=== PATIENT | male | born 1970 | race Caucasian/White ===

== ENCOUNTER 2021-02-10 17:31 | Emergency (ER) | payer OTHER, SELFPAY ==
[2021-02-10 17:32] VITALS: BP 270/231; PULSE 109; RESP 16; TEMP 36.3; O2SAT 100; BMI 26.6
[2021-02-10 17:42] VITALS: BP 121/74
--- NOTE | 2021-02-10 17:56 | EDS_ITS ---
HPI HPI - GI History of Present Illness Chief Complaint: Nausea/Vomiting Narrative Narrative: 50-year-old male presenting with nausea/vomiting. His last episode of vomiting was yesterday. He states he has the chills. Patient states he is not had a cough, runny nose, fever, change in taste or smell. He also states that he did drink a lot yesterday and this may be why he vomited. He does admit to drinking every day about 4-5 beers. He has no history of pancreatitis. He denies abdominal pain. He is concerned he has COVID-19 and wants to be tested. [facility] Medical History Anxiety Depression Home Medications amitriptyline 1 tab OTHER QHS 02/10/21 [History Last Taken Unknown] ondansetron 4 mg PO Q8H PRN PRN #10 tab 02/10/21 [Rx Last Taken Unknown] Allergy/AdvReac Type Severity Reaction Status Date / Time Penicillins [PCN] Allergy PT UNSURE Verified 02/10/21 17:33 OF REACTION Social History Smoking Status: Unknown if ever smoked ROS ROS ED Constitutional Constitutional ED: Reports chills; Denies fever(s) or sweats ENT ENT ED: Denies rhinorrhea or sore throat Cardiovascular Cardiovascular: Denies chest pain or palpitations Respiratory/Chest Respiratory/Chest: Denies cough or dyspnea Gastrointestinal Gastrointestinal: Reports nausea and vomiting; Denies abdominal pain, constipation or diarrhea Genitourinary Genitourinary ED: Denies dysuria or hematuria Musculoskeletal Musculoskeletal: Denies arthralgias, back pain, myalgias or neck pain Integumentary Denies Abrasions or rash Neurologic Neurologic: Denies headache(s) or paresthesias EXAM Physical Exam Const Vital Signs: 02/10/21 17:32 02/10/21 17:42 Temperature 97.4 F L Temperature Source Temporal Pulse Rate 109 H Respiratory Rate 16 Blood Pressure 270/231 H 121/74 H Blood Pressure Mean 270/231 89 Pulse Ox 100 Positive well nourished General Appearance ED: NAD; Negative for pallor HEENT Reports moist mucous membranes normocephalic and atraumatic Eyes PERRL and EOMs intact bilaterally Resp normal respiratory effort and clear to auscultation bilaterally Cardio regular rate and regular rhythm GI non-tender and non-distended Palpation: soft Neuro Sensorium / Orientation: alert, oriented to person, oriented to place and oriented to time Psych mental status grossly normal and thought process normal Skin General Skin Exam: Negative for jaundice or pallor Rashes: no rashes MDM MDM MDM Narrative Medical decision making narrative: Patient presented with nausea/vomiting. He states his last episode was yesterday. He states he is an everyday drinker but is more concerned for COVID-19. I did offer blood work and possibly imaging if necessary but he declines. He states he just wants to be tested and he will wait for his result at home. He was given Zofran in the ED and will be given a prescription for this. He is counseled to discontinue drinking on an everyday basis. He is given return precautions. Patient stable discharge at this time. Impression: 1 viral syndrome Discharge Plan Triage Chief Complaint: Nausea/Vomiting ED Provider: Mk Pak Dx/Rx/DC Orders Instructions: ED Viral Syndrome (Adult) Prescriptions: New ondansetron 4 mg tablet,disintegrating 4 mg PO Q8H PRN PRN (Reason: Nausea) Qty: 10 RF: 0 No Action amitriptyline 1 tab OTHER QHS RF: 0 [facility] - Disposition Disposition: Home, Self Care
[2021-02-10] MEDS: Ondansetron ODT 4 MG Tablet PO (18:09)
== END 2021-02-10 18:26 | disposition home or self-care (01) ==
LOC: ED 18:15
PROVIDERS: Emergency Provider Student in an Organized Health Care Education/Training Program
DX: B34.9 Viral infection, unspecified (principal); F32.9 Major depressive disorder, single episode, unspecified; Z79.899 Other long term (current) drug therapy
CPT/HCPCS: 87426; 99283

== ENCOUNTER 2022-07-22 20:55 | Emergency (ER) | payer OTHER, SELFPAY ==
[2022-07-22 20:57] VITALS: BP 172/98; PULSE 71; RESP 15; TEMP 37.1; O2SAT 100; BMI 27.6
--- NOTE | 2022-07-22 21:14 | EDS_ITS ---
HPI History of Present Illness Chief Complaint: Upper Extremity Injury Detail of Chief Complaint: Right hand and wrist pain Informant: patient Narrative Narrative: Patient presents to the emergency department with complaint of pain and swelling to the right hand and wrist. 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 Patient states that this evening he noticed a lot of swelling and discoloration to his hand and decreased ability to flex and extend his fingers and became concerned. Patient is right-hand dominant. He denies d irect trauma to the hand or wrist. PFSH PFS Medical History Anxiety Depression Home Medications amitriptyline 1 tab OTHER QHS 02/10/21 [History Last Taken Unknown] ondansetron 4 mg disintegrating tablet 4 mg PO Q8H PRN PRN Nausea #10 tabs 02/10/21 [Rx Last Taken Unknown] naproxen 500 mg tablet 500 mg PO BID #14 tabs 07/22/22 [Rx Last Taken Unknown] Allergy/AdvReac Type Severity Reaction Status Date / Time Penicillins [PCN] Allergy PT UNSURE Verified 07/22/22 21:02 OF REACTION Social History Smoking Status: Unknown if ever smoked ROS ROS ED Review of Systems ROS Unobtainable: other Constitutional Constitutional ED: Reports lethargy; Denies chills, fever(s), sweats or weight loss Eyes Eyes: Denies blurry vision, change in vision or diplopia ENT ENT ED: Denies rhinorrhea or sore throat Cardiovascular Cardiovascular: Denies chest pain, orthopnea or racing heartbeat Respiratory/Chest Respiratory/Chest: Denies cough, dyspnea, dyspnea on exertion, orthopnea or sputum Gastrointestinal Gastrointestinal: Denies abdominal pain, diarrhea, nausea or vomiting Genitourinary Genitourinary ED: Denies dysuria, hematuria or urinary frequency Musculoskeletal Musculoskeletal: Reports other Details: Right wrist and hand pain. ; Denies arthralgias, back pain, myalgias or neck pain Integumentary Denies abscess, Abrasions or rash Neurologic Neurologic: Denies headache(s) or weakness Psychiatric Psychiatric: Denies anxiety, depression or suicidal thoughts Endocrine Endocrinology: Denies polydipsia, polyphagia or polyuria Hematologic/Lymphatic Hematologic/Lymphatic: Denies easy bleeding, easy bruising or lymphadenopathy Allergic/Immunologic Allergic/Immunologic ED: Denies mouth swelling, tongue swelling or urticaria EXAM Physical Exam Const Vital Signs: 07/22/22 20:57 Temperature 98.7 F Temperature Source Temporal Pulse Rate 71 Respiratory Rate 15 Blood Pressure 172/98 H Blood Pressure Mean 122 Pulse Ox 100 Oxygen Delivery Method Room Air Positive well nourished and well developed General Appearance ED: well developed and NAD HEENT Reports TM's clear and moist mucous membranes normocephalic and atraumatic; Negative for trauma or tenderness Tympanic Membrane ED: Yes TM's clear Eyes PERRL and EOMs intact bilaterally General Eye ED: Negative for pale conjunctiva or scleral icterus Neck no lymphadenopathy, supple and no JVD General: Negative for tenderness Chest Wall inspection of chest normal and palpation of chest normal Chest: Negative for tenderness Resp normal respiratory effort and clear to auscultation bilaterally Effort and Inspection: Negative for respiratory distress or pain with movement Auscultation: Negative for rhonchi, wheezes or diminished lung sounds Cardio regular rate, regular rhythm, S1 normal heart sound, S2 normal heart sound and no murmurs Peripheral Pulses: pulses 2+ throughout GI normal to inspection, nondistended, normoactive bowel sounds, soft to palpation, non-tender, non-distended and no masses Back/Spine no CVA tenderness and no thoracic nor lumbar tenderness Extremity Extremity Narrative: Right wrist-patient has have some mild diffuse swelling to the wrist and dorsum of the right hand. Patient has some faint reddish discoloration to the right hand as well as the left hand. Patient has normal ulnar and radial pulses as well as normal cap refill. Somewhat limited range of motion flexion extension of the digits of the right hand but tells me this is actually been improving steadily. General Extremety ED: Negative for edema General Extremity: Negative for edema Neuro oriented x3, CN's II-XII intact bilaterally, no sensory deficits noted and gait normal Sensorium / Orientation: awake, alert, oriented to person, oriented to place and oriented to time Motor Exam: strength 5/5 throughout and strength abnormal Psych mental status grossly normal Skin no rashes or lesions noted and no wounds MDM MDM MDM Narrative Medical decision making narrative: Patient presents with right hand and wrist pain. Clinically I feel he has a overuse injury/sprain/strain of the wrist and hand. I do not feel any x-rays or imaging is indicated. Patient is neurovascularly intact. Will be given a wrist splint and work restrictions. He will be given a prescription for naproxen. Patient to follow-up with [facility] and 3 to 5 days. Patient given work restrictions no use right hand. Discharge Plan Triage Chief Complaint: Upper Extremity Injury ED Provider: Anders Sage Dx/Rx/DC Orders Clinical Impression: Right wrist sprain, Sprain of hand, right Instructions: ED Hand Sprain, ED Wrist Sprain Prescriptions: New naproxen 500 mg tablet 500 mg PO BID Qty: 14 0RF No Action amitriptyline 1 tab OTHER QHS ondansetron 4 mg tablet,disintegrating 4 mg PO Q8H PRN PRN (Reason: Nausea) Qty: 10 0RF [facility]errals[facility]Group [facility] Phys[facility] - [facility]-5 Days [facility] - Disposition Disposition: Home, Self Care
== END 2022-07-22 21:55 | disposition home or self-care (01) ==
LOC: ED 21:40
PROVIDERS: Emergency Provider Emergency Medicine; Visit Provider Emergency Medicine
DX: S63.91XA Sprain of unspecified part of right wrist and hand, initial encounter (principal); X58.XXXA Exposure to other specified factors, initial encounter
CPT/HCPCS: 99283

== ENCOUNTER 2022-09-02 19:43 | Emergency (ER) | payer OTHER, SELFPAY ==
[2022-09-02 19:47] VITALS: BP 168/92; PULSE 81; RESP 18; TEMP 36.8; O2SAT 100; BMI 27.6
[2022-09-02 21:36] VITALS: RESP 18
--- NOTE | 2022-09-02 22:27 | EDS_ITS ---
HPI History of Present Illness Chief Complaint: Mental Health Narrative Narrative: Patient is a 51-year-old male with past medical history of anxiety and depression. 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 He states that unfortunately she recently. He states he has been feeling down and depressed secondary to this. He states that today he was having a rough spot and called the hotline. He states that they recommended he come to the hospital for evaluation. Upon arrival to the ER the patient admits to feeling depressed because of the recent loss of his relationship but denies any attempt to hurt himself or any suicidal homicidal ideation. PFSH PFSH Medical History (Updated 09/02/22 @ 22:[address] Aguilar Gary DO) Anxiety Depression Home Medications amitriptyline 1 tab OTHER QHS 02/10/21 [History Last Taken Unknown] ondansetron 4 mg disintegrating tablet 4 mg PO Q8H PRN PRN Nausea #10 tabs 02/10/21 [Rx Last Taken Unknown] naproxen 500 mg tablet 500 mg PO BID #14 tabs 07/22/22 [Rx Last Taken Unknown] Allergy/AdvReac Type Severity Reaction Status Date / Time Penicillins [PCN] Allergy PT UNSURE Verified 09/02/22 19:47 OF REACTION Surgical History (Updated 09/02/22 @ 21:38 by Noemy Dawkins) History of carpal tunnel surgery Social History Smoking Status: Never smoker ROS [facility] ED Constitutional Constitutional ED: Denies chills or fever(s) ENT ENT ED: Denies sore throat Cardiovascular Cardiovascular: Denies chest pain Respiratory/Chest Respiratory/Chest: Denies cough or dyspnea Gastrointestinal Gastrointestinal: Denies abdominal pain, diarrhea, nausea or vomiting Genitourinary Genitourinary ED: Denies dysuria Musculoskeletal Musculoskeletal: Denies myalgias Integumentary Denies rash Neurologic Neurologic: Denies headache(s) Psychiatric Psychiatric: Reports depression; Denies suicidal ideation or suicidal thoughts Hematologic/Lymphatic Hematologic/Lymphatic: Denies easy bleeding or easy bruising EXAM Physical Exam Const Vital Signs: 09/02/22 19:47 09/02/22 21:36 Temperature 98.3 F Temperature Source Temporal Pulse Rate 81 Respiratory Rate 18 18 Blood Pressure 168/92 H Blood Pressure Mean 117 Pulse Ox 100 Oxygen Delivery Method Room Air Positive well nourished and well developed General Appearance ED: well developed Eyes PERRL and EOMs intact bilaterally Neck supple Resp normal respiratory effort and clear to auscultation bilaterally Cardio regular rate and regular rhythm Extremity normal to inspection Neuro oriented x3 and CN's II-XII intact bilaterally Sensorium / Orientation: alert Psych Psych Narrative: Patient has a depressed affect without homicidal or suicidal ideation Skin no rashes or lesions noted MDM MDM MDM Narrative Medical decision making narrative: Patient presented to the ER hypertensive otherwise with stable vital. 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 He states he was having a weak moment earlier today when he called the hotline but is adamant he does not have any type of homicidal or suicidal ideation. He also denies any alcohol or illicit drugs on board or any attempt to hurt himself this evening. Overall he is low risk for suicide attempt as he has never tried to hurt himself in the past has never been admitted to psychiatric hospital and he has no thoughts of it at this time. The patient is undergoing a grief reaction which is very normal based on the recent loss of his relationship and caregiver capacity. He was informed that he needs to seek out treatment through counseling or a therapist but at this time as he is not actively homicidal or suicidal and is low risk to attempt he is otherwise safe for discharge. History & Record Review Discussion w/independent historian: Patient Discharge Plan Triage Chief Complaint: Mental Health ED Provider: Aguilar Gary Dx/Rx/DC Orders Clinical Impression: Depression, Grief reaction Instructions: Depression: Tips to Help Yourself, Grief and Loss Coping Prescriptions: No Action amitriptyline 1 tab OTHER QHS ondansetron 4 mg tablet,disintegrating 4 mg PO Q8H PRN PRN (Reason: Nausea) Qty: 10 0RF naproxen 500 mg tablet 500 mg PO BID Qty: 14 0RF [facility] - Disposition Disposition: Home, Self Care
--- NOTE | 2022-09-02 22:32 | CM.ED ---
Addendum entered by Chaparrita Hernandez 09/02/22 22:35: Patient was evaluated by MD and further MH evaluation not needed. SW updated [facility] patient is being discharged with resources for depression and grief. RAHUL Mcginnis Original Note: Social Work Note SW contacted [facility] to review patient's needs for evaluation. Raciel reports Yareli will be in after midnight and can assess patient when medically cleared. Plan: [facility] to evaluate once medically cleared RAHUL Mcginnis
== END 2022-09-02 23:11 | disposition home or self-care (01) ==
LOC: ED 22:33
PROVIDERS: Emergency Provider Emergency Medicine; Visit Provider Emergency Medicine
DX: F32.A Depression, unspecified (principal)
CPT/HCPCS: 99282

== ENCOUNTER 2022-09-07 23:26 | Observation (INO) | payer OTHER, SELFPAY ==
[2022-09-07 23:27] VITALS: BP 171/87; PULSE 98; RESP 15; TEMP 36.2; O2SAT 99; BMI 27.2
[2022-09-07] MEDS: 0.9% Normal Saline 1,000 ML 1000 ML IV (23:57)
[2022-09-07] MEDS: Ondansetron 4 MG/2 ML Vial IV (23:57)
[2022-09-08] VITALS (8 sets, daily range): BP systolic 140–165; BP diastolic 73–92; PULSE 76–91; RESP 16–18; TEMP 36.2–37; O2SAT 97–100; BMI 25.7
--- NOTE | 2022-09-08 00:01 | EX.ED.VIS.PS ---
HPI HPI - Psych History of Present Illness Chief Complaint: Mental Health Informant: patient Narrative Narrative: Brought in by EMS for evaluation from home. History anxiety depression on amitriptyline at night to sleep provided by [facility]. He does not follow a counselor or psychiatrist. Reports lost his significant other of 20 years a month ago due to illness. They have no children together however he does have a son in his 20s. He also help raise 2 of his significant other's children when they are 5 and 8. He is feeling more depressed and grieving. Started talking to be a counselor 5 days ago he was sent to the ED at that time here. He is valued by ED physician throughout [facility] and it was a grieving process, he had no suicidal or homicidal ideations. He was discharged home with follow-up with [facility]. He states he has been talking with them almost daily since then. Today had another discussion and he states he requested somebody check on him. Police was contacted came and evaluated. He was brought here for evaluation. Currently denies any suicidal homicidal ideations. No history of self harming. No psychiatric admissions in the past. He does admit to daily alcohol use 6-8 beers. Today he states he drank a lot more today only 1-1/2 beers. Denies any morning withdrawal symptoms. He states he has been working throughout the years, more recently through [employer] agencies. He has not worked since the loss of his significant other however states supposed to start third shift here with [employer]. Denies recreational drug use. Does report today has been thrown up more multiple times no hematemesis no diarrhea has some mid abdominal pain due to vomiting. Denies any history of pancreatitis. States nauseated unable to keep things down today. Prior similar symptoms: Yes PFSH PFSH Medical History Anxiety Depression Home Medications amitriptyline 1 tab OTHER QHS 02/10/21 [History Last Taken Unknown] Allergy/AdvReac Type Severity Reaction Status Date / Time Penicillins [PCN] Allergy PT UNSURE Verified 09/02/22 19:47 OF REACTION Surgical History History of carpal tunnel surgery Social History Smoking Status: Never smoker ROS ROS ED Constitutional Constitutional ED: Denies chills, fever(s) or sweats Eyes Eyes: Denies change in vision ENT ENT ED: Denies dysphagia or sore throat Cardiovascular Cardiovascular: Denies chest pain, leg edema, palpitations or racing heartbeat Respiratory/Chest Respiratory/Chest: Denies cough, dyspnea or dyspnea on exertion Gastrointestinal Gastrointestinal: Reports abdominal pain, nausea and vomiting; Denies diarrhea Genitourinary Genitourinary ED: Denies dysuria, hematuria or urinary frequency Musculoskeletal Musculoskeletal: Denies back pain, extremity pain or neck pain Integumentary Denies rash or wounds Neurologic Neurologic: Denies headache(s), paresthesias or weakness EXAM Physical Exam Const Vital Signs: 09/07/22 23:27 09/08/22 00:51 Temperature 97.1 F L Temperature Source Oral Pulse Rate 98 89 Respiratory Rate 15 16 Blood Pressure 171/87 H 151/84 H Blood Pressure Mean 115 106 Pulse Ox 99 97 Oxygen Delivery Method Room Air Room Air Positive well nourished and well developed General Appearance ED: well developed and NAD HEENT HEENT Narrative: Dry mucosal membranes normocephalic and atraumatic Eyes PERRL, EOMs intact bilaterally and conjunctivae normal General Eye ED: Yes normal appearance of both eyes Neck no lymphadenopathy and supple General: Negative for tenderness Chest Wall Chest: Negative for tenderness Resp normal respiratory effort and normal air movement Effort and Inspection: symmetric chest movement; Negative for respiratory distress Cardio regular rate, regular rhythm and no murmurs Peripheral Pulses: pulses 2+ throughout GI normal to inspection, nondistended, normoactive bowel sounds GI Narrative: Mild mid abdominal tenderness, no guarding or rebound negative Chahal's McBurney's tenderness. Palpation: Negative for guarding or rebound tenderness present Back/Spine no CVA tenderness and no thoracic nor lumbar tenderness Extremity normal to inspection General Extremety ED: Negative for edema or tenderness General Extremity: Negative for edema Neuro oriented x3 and no sensory deficits noted Sensorium / Orientation: awake and alert Skin no rashes or lesions noted and no wounds MDM MDM MDM Narrative Medical decision making narrative: Interventions / MDM: Differential diagnosis: Severe depression, nausea vomiting, pancreatitis, dehydration, electrolyte abnormalities Diagnosis considered but do not suspect: N/A My EKG interpretation: N/A Imaging independently reviewed and interpreted by myself: N/A External documents reviewed: N/A Test considered but not ordered:N/A ED course: Vital stable dry mucosal membranes. Presenting with grieving and depression symptoms. Denies homicidal suicidal ideations. He was seen here 5 days ago with no counselor evaluation. He has been on the phone with the [facility] counseling almost daily. He drinks alcohol daily without any withdrawal symptoms. He is in agreements to evaluation by crisis. Reports keeping things inside and not speaking with his child's ago other children or his father due to not wanting to bother them. From medical standpoint during discussion had vomiting throughout the day and dry mucosal membranes. He will be given IV fluids we will check abdominal labs rule out pancreatitis we will treat with Zofran. 0030: Labs alcohol 59. Slight elevated liver enzymes likely alcohol hepatitis. Normal lipase at 11. However he has a sodium of 123. He has been clinically vomiting throughout the day. I checked [facility] to evaluate for any old labs which was not showing any previous electrolytes. [facility] He is told me 5 years ago was told his sodium was dangerously low. He was not symptomatic at that time. He was not hospitalized he was never put on any salt tablets. This could all be secondary to his longstanding alcohol history, however today has been vomiting throughout the day now symptomatic with a low sodium. Currently unable to medically clear him with one note sodium level for psychiatry. Discussed this with the patient, he understands and agrees to stay in the hospital to help with symptoms and evaluate his sodium. Per his alcohol history he denies any withdrawal symptoms, no cravings in the mornings. No seizure history. He reports he went through voluntary alcohol program and was sober for a year. I will speak with hospitalist service for evaluation. 0110: Spoke with Dr. Boston who evaluated the ED, will admit for observations. Re-evaluation: stable Disposition discussed with patient/family/significant other: Patient Case discussed with consulting clinician: N/A Lab Data Attestation: I reviewed the patient's lab results. Labs: Laboratory Results - last 24 hr 09/07/22 09/07/22 09/07/22 23:49 23:49 23:49 WBC 3.4 L RBC 4.42 L Hgb 14.9 Hct 40.2 MCV 91.0 MCH 33.7 H MCHC 37.1 H RDW Std Deviation 40.4 RDW Coeff of Gale 12.3 Plt Count 202 MPV 8.7 Immature Gran % (Auto) 0.600 Neut % (Auto) 77.3 H Lymph % (Auto) 11.8 L [place] % (Auto) 9.1 Eos % (Auto) 0.3 Baso % (Auto) 0.9 Absolute Neuts (auto) 2.6 Absolute Lymphs (auto) 0.40 L Nucleated RBC % 0 Differential Comment SCANNED Diff Path Review May foll Sodium 123 L Potassium 3.9 Chloride 85 L Carbon Dioxide 23.0 Anion Gap 15 BUN 8 Creatinine 1.08 Estim Creat Clear Calc 75.65 Est GFR (MDRD) Af Amer 92 Est GFR (MDRD) Non-Af 76 BUN/Creatinine Ratio 7.4 L Glucose 76 Calcium 9.5 Total Bilirubin 0.60 AST 148 H ALT 113 H Alkaline Phosphatase 93 Total Protein 9.3 H Albumin 4.4 Globulin 4.9 H Albumin/Globulin Ratio 0.9 Lipase 11 L Urine Opiates Screen Urine Methadone Screen Ur Barbiturates Screen Ur Phencyclidine Scrn Ur Amphetamines Screen MDMA (Ecstasy) Screen U Benzodiazepines Scrn Urine Cocaine Screen U Cannabinoids Screen Ur Drug Screen Comment Ethyl Alcohol 59.0 09/08/22 00:04 WBC RBC Hgb Hct MCV MCH MCHC RDW Std Deviation RDW Coeff of Gale Plt Count MPV Immature Gran % (Auto) Neut % (Auto) Lymph % (Auto) [place] % (Auto) Eos % (Auto) Baso % (Auto) Absolute Neuts (auto) Absolute Lymphs (auto) Nucleated RBC % Differential Comment Diff Path Review Sodium Potassium Chloride Carbon Dioxide Anion Gap BUN Creatinine Estim Creat Clear Calc Est GFR (MDRD) Af Amer Est GFR (MDRD) Non-Af BUN/Creatinine Ratio Glucose Calcium Total Bilirubin AST ALT Alkaline Phosphatase Total Protein Albumin Globulin Albumin/Globulin Ratio Lipase Urine Opiates Screen NEGATIVE Urine Methadone Screen NEGATIVE Ur Barbiturates Screen NEGATIVE Ur Phencyclidine Scrn NEGATIVE Ur Amphetamines Screen NEGATIVE MDMA (Ecstasy) Screen NEGATIVE U Benzodiazepines Scrn NEGATIVE Urine Cocaine Screen NEGATIVE U Cannabinoids Screen NEGATIVE Ur Drug Screen Comment Ethyl Alcohol Discharge Plan Triage Chief Complaint: Mental Health ED Provider: Ramesh Obrien Dx/Rx/DC Orders Clinical Impression: Hyponatremia, Depression, Grief reaction, Nausea & vomiting, Dehydration, Acute alcoholic hepatitis, Alcoholic dependence syndrome Prescriptions: No Action amitriptyline 1 tab OTHER QHS [facility] - Disposition Disposition: Acute Care Hospital [facility]
[2022-09-08 00:05] LABS: Absolute Neutrophil Count 2.6 X10^3/uL (2.0-7.7); Basophil# 0.03 X10^3/uL; Basophil% 0.9 % (0-1); Eosinophil# 0.01 X10^3/uL; Eosinophils% 0.3 % (0-5); Hematocrit 40.2 % (40-54); Hemoglobin 14.9 g/dL (13.0-16.5); Lymphocyte % 11.8 % (19-41); Mean Corp Hgb Conc 37.1 g/dL (32-36); Mean Corpuscular Hgb 33.7 pg (27.0-32.0); Mean Platelet Vol. 8.7 fl (6.2-12.0); Monocyte# 0.31 X10^3/uL; Monocyte% 9.1 % (0-10); NRBC Flagged by Analyzer 0 % (0-5); Neutrophil # 2.63 X10^3/uL (2.7-7.7); Neutrophil % 77.3 % (47-70); POSITIVE DIFFERENTIAL YES; Platelet Count 202 K/mm3 (150-450); RBC Distribution Width CV 12.3 % (11.6-14.6); RBC Distribution Width SD 40.4 fl (35.1-43.9); Red Blood Count 4.42 M/mm3 (4.6-6.2); White Blood Count 3.4 K/mm3 (4.4-11.0)
[2022-09-08 00:14] LABS: Differential Indicated SCAN CRITERIA MET
[2022-09-08 00:18] LABS: ALB/GLOB Ratio 0.9 RATIO (0.9-2.4); AST(SGOT) 148 U/L (15-37); Alanine Aminotransfer ALT/SGPT 113 U/L (16-61); Albumin, Serum 4.4 g/dL (3.2-5.0); Alkaline Phosphatase 93 U/L (45-117); Anion Gap 15 (5-15); BUN 8 mg/dL (7-18); BUN/Creat Ratio 7.4 RATIO (10-20); Calcium,Total 9.5 mg/dL (8.5-10.1); Chloride 85 mmol/L (98-107); Creatinine, Serum 1.08 mg/dL (0.70-1.30); EST Glomerular Filtration Rate 76 mL/min (>60); Est Glom Filt Rate - Afr Amer 92 mL/min (>60); Estimated Creatinine Clearance 75.65 ml/min; Globulin 4.9 g/dL (2.2-4.2); Glucose 76 mg/dL (74-106); Lipase 11 U/L (13-75); Potassium 3.9 mmol/L (3.5-5.1); Protein, Total 9.3 g/dL (6.4-8.2); Sodium Level 123 mmol/L (136-145)
[2022-09-08 00:21] LABS: Amphetamine Urine VISTA NEGATIVE (<1000 ng/mL); Barbiturate Urine VISTA NEGATIVE (< 200 ng/mL); Benzodiazepine Urine VISTA NEGATIVE (< 200 ng/mL); Cocaine Urine VISTA NEGATIVE (< 300 ng/mL); Ecstacy Urine VISTA NEGATIVE (< 500 ng/mL); Methadone Urine VISTA NEGATIVE (< 300 ng/mL); PCP Urine VISTA NEGATIVE (< 25 ng/mL); THC Urine VISTA NEGATIVE (< 50 ng/mL); Vista UDS pH Range 4
[2022-09-08 00:42] LABS: Differential Comment SCANNED
--- NOTE | 2022-09-08 01:43 | PCM.HP.STD ---
HPI - General General Date of Admission: 09/08/22 Date of Service: 09/08/22 Chief Complaint: Intractable nausea/emesis. HPI Narrative The patient is a 51 y/o M w/ PMHx: EtOH abuse (6-8 beers daily), Anxiety and Depression with worsening depressive symptoms with recent [facility] who presents to the [facility] on 09/08/22 w/ noted history of the day prior of significant increased intake of approximately 15-12 ounce beers and upon awaking today felt poorly with nausea and persistent emesis, fatigue and malaise with then onset mild epigastric and generalized abdominal discomfort but primarily muscular with his bouts of emesis with no recent fevers or chills nor any diarrhea with only 1.5 beers consumed through the day with denied agitation, tremors or tactile disturbances. Patient does admit to severe depression and reports missing his significant but denies any suicidal or homicidal ideations. Did discuss his alcohol abuse and he has no interest in sobriety at this time. Work-up in the ED included T97.1, heart rate 89, BP 151/84, respiratory rate 16, 97% on room air, CBC with WC 3.4, hemoglobin 14.9, platelet 202 with lymphopenia, CMP with sodium 123, chloride 85, AST/ALT 148/113, lipase 11, UDS negative, ethyl alcohol level 59, SARS COVID antigen negative. In the ED patient ministered 1 L normal saline as well as Zofran 4 mg IV x1. [facility] Medical History (Updated 09/08/22 @ 01:[address] Marika Boston MD) Alcohol abuse Anxiety and depression Home Medications amitriptyline 1 tab OTHER QHS 02/10/21 [History Last Taken Unknown] Allergy/AdvReac Type Severity Reaction Status Date / Time Penicillins [PCN] Allergy PT UNSURE Verified 09/02/22 19:47 OF REACTION Family History (Updated 09/08/22 @ 01:[address] Marika Boston MD) Mother Rheumatoid arthritis Father Hypertension Surgical History (Updated 09/08/22 @ 01:[address] Marika Boston MD) History of carpal tunnel surgery Social History (Updated 09/08/22 @ 01:[address] Marika Boston MD) Smoking Status: Never smoker alcohol intake: current alcohol intake frequency: 3 or more drinks per day details: Drinks usually 6-8, 12 ounces beers daily, 09/06/22 15 beers intake. substance use type: does not use ROS ROS Narrative Admission Review of Systems: CONSTITUTIONAL: No weight loss, fever, chills, + weakness or fatigue. HEENT: Eyes: No visual loss, blurred vision, double vision or yellow sclerae. Ears, Nose, Throat: No hearing loss, sneezing, congestion, runny nose or sore throat. SKIN: No rash or itching, lesions, wounds. CARDIOVASCULAR: No chest pain, chest pressure or chest discomfort, palpitations, edema, orthopnea, syncopal events. RESPIRATORY: No shortness of breath, cough or sputum, wheezing, hemoptysis. GASTROINTESTINAL: + anorexia, nausea, vomiting, abdominal discomfort but primarily musculoskeletal with emesis bouts. No diarrhea, melena, BRBPR. GENITOURINARY: No dysuria, frequency, urgency or retention. NEUROLOGICAL: + headache. No dizziness, syncope, paralysis, ataxia, numbness or tingling in the extremities, focal weakness, change in bowel or bladder control, seizure. MUSCULOSKELETAL: + muscle, back pain, joint pain or stiffness. HEMATOLOGIC: No anemia, bleeding or bruising. LYMPHATICS: No enlarged nodes. No history of splenectomy. PSYCHIATRIC: + history of depression or anxiety. ENDOCRINOLOGIC: No reports of sweating, cold or heat intolerance. No polyuria or polydipsia. ALLERGIES: No history of asthma, hives, eczema or rhinitis. Vital Signs Vital Signs Vital Signs: 09/07/22 23:27 09/08/22 00:51 09/08/22 01:24 Temperature 97.1 F L Temperature Source Oral Pulse Rate 98 89 91 Respiratory Rate 15 16 16 Blood Pressure 171/87 H 151/84 H 158/73 H Blood Pressure Mean 115 106 101 Pulse Ox 99 97 97 Oxygen Delivery Method Room Air Room Air Room Air 09/08/22 01:24 Temperature 97.2 F L Temperature Source Oral Pulse Rate 91 Respiratory Rate 16 Blood Pressure 158/73 H Blood Pressure Mean 101 Pulse Ox 97 Oxygen Delivery Method Room Air Weight Weight: 174 lb 2.643 oz Body Mass Index (BMI) 27.2 Physical Exam Narrative Physical Examination: General: Awake, alert, oriented x 3 and cooperative, seated upright in the ED bed, flat affect, tearful. Skin: Normal color, normal turgor, no icterus, no cyanosis. HEENT: AT/NC, EOMI, PERRLA, dry MM, no carotid bruits or JVD noted. Lungs: CTA bilaterally, moderate effort, mild decrease BL bases, no rales, ronchi or wheezing. Heart: Currently regular rate and rhythm; no gallop, rub audible. Abdomen: Soft, unable to elicit any discomfort, no rebound nor any guarding, no marked distention, mildly hyperactive bowel sounds, + mild HM. Extremities: No cyanosis, clubbing, or edema. Neurological: Patient awake, alert, oriented as noted, cognitive function intact; pupils equally reactive to light and accommodation, cranial nerves II-XII grossly normal, moving all 4 extremities, no focal deficits, strength mildly to moderately globally decreased secondary to acute complaints. Psychiatric: Affect appears flat, tearful, appears depressed, admits to underlying anxiety and depression, denies any suicidal ideation or homicidal ideation. Results Lab / Micro Data Result Diagrams: 09/07/22 23:49 09/07/22 23:49 Labs: Laboratory Results - last 24 hr 09/07/22 23:49: WBC 3.4 L, RBC 4.42 L, Hgb 14.9, Hct 40.2, MCV 91.0, MCH 33.7 H, MCHC 37.1 H, RDW Std Deviation 40.4, RDW Coeff of Gale 12.3, Plt Count 202, MPV 8.7, Immature Gran % (Auto) 0.600, Neut % (Auto) 77.3 H, Lymph % (Auto) 11.8 L, [place] % (Auto) 9.1, Eos % (Auto) 0.3, Baso % (Auto) 0.9, Absolute Neuts (auto) 2.6, Absolute Lymphs (auto) 0.40 L, Nucleated RBC % 0, Differential Comment SCANNED, Diff Path Review September foll 09/07/22 23:49: Sodium 123 L, Potassium 3.9, Chloride 85 L, Carbon Dioxide 23.0, Anion Gap 15, BUN 8, Creatinine 1.08, Estim Creat Clear Calc 75.65, Est GFR (MDRD) Af Amer 92, Est GFR (MDRD) Non-Af 76, BUN/Creatinine Ratio 7.4 L, Glucose 76, Calcium 9.5, Total Bilirubin 0.60, AST 148 H, ALT 113 H, Alkaline Phosphatase 93, Total Protein 9.3 H, Albumin 4.4, Globulin 4.9 H, Albumin/Globulin Ratio 0.9, Lipase 11 L 09/07/22 23:49: Ethyl Alcohol 59.0 09/08/22 00:04: Urine Opiates Screen NEGATIVE, Urine Methadone Screen NEGATIVE, Ur Barbiturates Screen NEGATIVE, Ur Phencyclidine Scrn NEGATIVE, Ur Amphetamines Screen NEGATIVE, MDMA (Ecstasy) Screen NEGATIVE, U Benzodiazepines Scrn NEGATIVE, Urine Cocaine Screen NEGATIVE, U Cannabinoids Screen NEGATIVE, Ur Drug Screen Comment Micro: Microbiology 09/08/22 00:04 Nasal Secretion SARS-CoV-2 Antigen (Rapid) - Final Assessment & Plan Assessment/Plan (1) Nausea & vomiting: PLAN: Plan The patient is a 51 y/o M w/ PMHx: EtOH abuse (6-8 beers daily), Anxiety and Depression with worsening depressive symptoms with recent [facility]ressive [facility] who presents to the [facility] on 09/08/22 w/ noted history of the day prior of significant increased intake of approximately 15-12 ounce beers and upon awaking today felt poorly with nausea and persistent emesis, fatigue and malaise with then onset mild epigastric and generalized abdominal discomfort but primarily muscular with his bouts of emesis with no recent fevers or chills nor any diarrhea with only 1.5 beers consumed through the day with denied agitation, tremors or tactile disturbances. #1. Intractable nausea and emesis suspected secondary to recent acute alcohol intoxication, notable intake above his prior baseline now complicated by #2: We will admit to medical surgical floor, maintain on continuous aggressive IV fluids, will obtain magnesium and phosphorus levels with supplementation as needed, treat as noted #2 for impending alcohol withdrawal as certainly could be contributing, will continue to trend sodium as likely acute on chronic component given GI losses with intractable nausea and emesis. #2. Impending Acute EtOH Withdrawal with chronic alcohol abuse with chronic elevated LFTs/alcoholic hepatitis: Will maintain on CIWA protocol, MVI, thiamine and folic acid. Patient notes intention of continued EtOH usage, magnesium and phosphorus levels requested. Case management consulted for substance abuse. We will hold on phenobarb administration given CIWA usage acutely but will have as needed gabapentin, Catapres, Bentyl, Vistaril, IV fluids, IV antiemetics, Tylenol as needed for pain. Will consult Case management for assistance for transition to next level of rehabilitation care. Mag, phos pending. #3. Anxiety and depression, uncontrolled: We will continue patient on amitriptyline regimen thus could benefit certainly from more aggressive treatment interventions and from regular psychiatric counseling with the same individual, case management consultation requested and if repeat labs in a.m. are appropriate would consider crisis evaluation as well although again he does deny suicidal ideation but from appearances has severe undertreated depression and has already been in the ED twice in the last week. #4. Suspected acute on chronic hyponatremia, secondary to recent GI losses and complicated by likely chronic beer potomania: Admission sodium 123, unclear exact baseline but do suspect he probably ranges from 125-130 at least given his heavy alcohol beer intake, continue antiemetics as well as aggressive IV fluids with repeat CMP in a.m. #5. Elevated BP without hypertensive diagnosis: BP upon presentation elevated, no history of hypertension, recent ED prior presentation also with elevated BP, suspect likely underlying hypertension, will have as needed IV hydralazine in interim but would add oral regimen if remains elevated on repeat assessments. #6. DVT: Low risk. Admission Evaluation Time spent evaluating chart, patient history, patient evaluation, care planning and discussion with specialists: 55 minutes. Charges/Coding Visit Charges Inpatient E&M: 88501 Init Hosp L2
[2022-09-08 02:22] LABS: Magnesium 2.1 mg/dL (1.6-2.6); Phosphorus 3.2 mg/dL (2.5-4.9)
[2022-09-08] MEDS: Famotidine 20 MG Tablet PO ×2 (02:55→07:52)
[2022-09-08] MEDS: 0.9% Normal Saline 1,000 ML 125 ML IV ×2 (02:55→10:40)
[2022-09-08] MEDS: proCHLORPERazine 10 MG/2 ML Vial 5 MG IV (02:55)
[2022-09-08] MEDS: 0.9% Normal Saline 1,000 ML 999 ML IV (02:55)
[2022-09-08 05:07] LABS: Absolute Lymphocyte Count 0.45 X10^3/uL (0.83-4.51); Absolute Neutrophil Count 2.8 X10^3/uL (2.0-7.7); Basophil# 0.01 X10^3/uL; Basophil% 0.3 % (0-1); Hematocrit 38.2 % (40-54); Hemoglobin 13.5 g/dL (13.0-16.5); Lymphocyte # 0.45 X10^3/ul (0.83-4.51); Lymphocyte % 12.3 % (19-41); Mean Corp Hgb Conc 35.3 g/dL (32-36); Mean Corpuscular Hgb 32.6 pg (27.0-32.0); Mean Corpuscular Volume 92.3 fL (80-94); Mean Platelet Vol. 8.6 fl (6.2-12.0); Monocyte# 0.37 X10^3/uL; Monocyte% 10.1 % (0-10); NRBC Flagged by Analyzer 0 % (0-5); Neutrophil % 76.8 % (47-70); POSITIVE DIFFERENTIAL YES; Platelet Count 176 K/mm3 (150-450); RBC Distribution Width CV 12.1 % (11.6-14.6); RBC Distribution Width SD 40.7 fl (35.1-43.9); Red Blood Count 4.14 M/mm3 (4.6-6.2); White Blood Count 3.7 K/mm3 (4.4-11.0)
[2022-09-08] MEDS: Acetaminophen 325 MG Tablet 650 MG PO (05:32)
[2022-09-08] MEDS: CLARIFY ORDER 1 EACH NOTE (05:32)
[2022-09-08 05:35] LABS: ALB/GLOB Ratio 0.9 RATIO (0.9-2.4); AST(SGOT) 102 U/L (15-37); Alanine Aminotransfer ALT/SGPT 89 U/L (16-61); Albumin, Serum 3.6 g/dL (3.2-5.0); Alkaline Phosphatase 79 U/L (45-117); Anion Gap 9 (5-15); BUN 7 mg/dL (7-18); BUN/Creat Ratio 9.8 RATIO (10-20); Calcium,Total 8.3 mg/dL (8.5-10.1); Chloride 91 mmol/L (98-107); Creatinine, Serum 0.71 mg/dL (0.70-1.30); EST Glomerular Filtration Rate 123 mL/min (>60); Est Glom Filt Rate - Afr Amer 149 mL/min (>60); Estimated Creatinine Clearance 115.08 ml/min; Globulin 3.9 g/dL (2.2-4.2); Glucose 81 mg/dL (74-106); Potassium 4.3 mmol/L (3.5-5.1); Protein, Total 7.5 g/dL (6.4-8.2); Sodium Level 124 mmol/L (136-145)
[2022-09-08 05:47] LABS: Differential Indicated SCAN CRITERIA MET
[2022-09-08 05:48] LABS: Differential Comment SCANNED
--- NOTE | 2022-09-08 06:58 | PCM.HOSP.N ---
Hospitalist Note Spoke with patient this a.m. who is feeling significantly better with drastically improved nausea and vomiting and no abdominal pain and tolerating his diet and was interested in advancing diet and seeing how he tolerated it. Discussed continued hospitalization versus discharge and outpatient follow-up and assessing how he did after lunch to make this determination. He tolerated a regular diet at lunchtime without difficulty and was comfortable with discharge home. Spoke with case management and nephrology social worker earlier and he was provided with resources for his depression and grief
[2022-09-08] MEDS: Folic Acid 1 MG Tablet PO (07:52)
[2022-09-08] MEDS: Thiamine Hydrochloride 100 MG Tablet PO (07:52)
[2022-09-08] MEDS: Sertraline 50 MG Tablet PO (07:52)
--- NOTE | 2022-09-08 09:20 | CASEMGMT ---
Addendum entered by Elisabet Oliva 09/08/22 14:24: SW received VM from Charity at [facility]. Charity requesting information regard pt case to assist in coordinating services as needed. SW called Charity back and received VM. Left message with quick update that pt likely to be d/c home this afternoon or tomorrow as long as pt is tolerating diet well. SW explained pt not suicidal and not appropriate for a crisis referral per MD Rivera. SW provided contact number and encouraged Charity to call back with any further concerns. Original Note: Social Work SW rounded with MD Rivera this AM. shared pt is tearful, upset with grief but denies SI. MD Rivera informed pt will not need a crisis consult. SW asked about providing resources to pt and MD Rivera feels this is a good idea. SW gather resources and in to discuss with pt. SW introduced self and role at the hospital. SW provided resources for Etoh abuse counseling and treatment, Mental Health counseling for depression and grief support and counseling from [facility]. Pt was open to discussing and shared times from experiences in the . Pt shared has been struggling to manage feelings since SO last month. SW sat with pt and offered support and encouragement for getting counseling help. Pt was receptive to information and agreeable to reaching out for help with MH and grief. Pt shared not to interested in Etoh counseling as this is being managed by his PCP with the [facility]. MICHAEL Gold
[2022-09-08 12:19] LABS: Pathologist Review Reviewed
[2022-09-08 12:20] LABS: Pathologist Review Reviewed
--- NOTE | 2022-09-08 16:21 | DS.PCM_ITS ---
Providers Date of Admission: 09/08/22 Date of Discharge: 09/08/22 Primary Care Physician: [facility] Reason For Visit: INTRACTABLE N/V Diagnosis Discharge Diagnosis (1) Nausea & vomiting: Status: Acute Code(s): R11.2 - Nausea with vomiting, unspecified Plan #intractable n/v #grief reaction #alcohol abuse #hyponatremia #alcoholic hepatitis Medications at Discharge Home Medications amitriptyline 150 mg QHS sleep 02/10/21 ondansetron HCl 4 mg tablet 4 mg PO Q8H PRN nausea and vomiting #10 tabs 09/08/22 Hospital Course Summary of Care Provided Minutes Spent on Discharge: 25 Hospital Course: Per admission H&P: The patient is a 51 y/o M w/ PMHx: EtOH abuse (6-8 beers daily), Anxiety and Depression with worsening depressive symptoms with recent [facility]ressive [facility] who presents to the [facility] on 09/08/22 w/ noted history of the day prior of significant increased intake of approximately 15-12 ounce beers and upon awaking today felt poorly with nausea and persistent emesis, fatigue and malaise with then onset mild epigastric and generalized abdominal discomfort but primarily muscular with his bouts of emesis with no recent fevers or chills nor any diarrhea with only 1.5 beers consumed through the day with denied agitation, tremors or tactile disturbances.? Patient does admit to severe depression and reports missing his significant but denies any suicidal or homicidal ideations.? Did discuss his alcohol abuse and he has no interest in sobriety at this time. Work-up in the ED included T97.1, heart rate 89, BP 151/84, respiratory rate 16, 97% on room air, CBC with WC 3.4, hemoglobin 14.9, platelet 202 with lymp hopenia, CMP with sodium 123, chloride 85, AST/ALT 148/113, lipase 11, UDS negative, ethyl alcohol level 59, SARS COVID antigen negative.? In the ED patient ministered 1 L normal saline as well as Zofran 4 mg IV x1. Interim history: Patient felt significantly better by the morning and tolerated and advancing diet. Discussed continue admission versus discharge and due to him tolerating diet he was comfortable with discharge. Sodium is low but remained stable, suspect multifactorial. Advise alcohol cessation and continued oral intake and repeat CMP to further evaluate sodium and assess improvement. Additionally LFTs improved and abdominal pain resolved by the a.m. Patient still reports feeling down and having grief but denies any suicidal ideation. No other acute complaints. Discharge instructions as followed: -It will be very important that you begin counseling and that you follow-up with your physician upon discharge -It is recommended to begin taking a multivitamin with folic acid -A prescription for Zofran (ondansetron) was sent to your preferred pharmacy on file to be taken as needed for several days of symptoms return. -Initially you were to be started on a medicine to work with the amitriptyline to help with mood however given your sodium it is advised to have your lab work checked in 2 to 3 days and verify your sodium level and liver function is stable prior to starting one of these medications -Would recommend lab work (CMP) to check your sodium and liver function in 2 to 3 days through your primary care physician's office.? Please call their office upon discharge to obtain order for lab work. - It is strongly advised that you discontinue drinking.? If you need help with detox this can always be done in the hospital for safety.? If you do desire de tox please represent to the hospital or please call [facility] located at [address] [place] [address] (ph [phone]) if you are interested in further resources to help with drinking -If you have any thoughts of harming yourself please call to contact the National suicide prevention Lifeline. You can also text HOME 1429380 from anywhere in the [place], this is a crisis text line, or proceed to your nearest emergency department -Please call your primary care provider's office upon discharge to schedule a hospital follow up within 1 week. -For any concerning signs or symptoms please call 911 or proceed to the nearest emergency department Physical Exam Narrative General: Alert, oriented, no apparent distress HEENT: Atraumatic, normocephalic Eyes: Anicteric, normal conjunctiva, extraocular movements grossly intact Neck: Supple Respiratory: Clear to auscultation bilaterally, normal respiratory effort Cardiovascular: Regular rate and rhythm GI: Soft, nontender, nondistended Extremities: No edema Musculoskeletal: Moving all extremities Neuro: No overt focal neurological deficits Skin: No rashes appreciated Psych: Cooperative Weight / BMI Weight Weight: 74.6 kg Body Mass Index (BMI) 25.7 ABG / Lab / Microbiology Data Result Diagrams: 09/08/22 05:00 09/08/22 05:00 Laboratory: Laboratory Results - last 24 hr 09/07/22 23:49: WBC 3.4 L, RBC 4.42 L, Hgb 14.9, Hct 40.2, MCV 91.0, MCH 33.7 H, MCHC 37.1 H, RDW Std Deviation 40.4, RDW Coeff of Gale 12.3, Plt Count 202, MPV 8.7, Immature Gran % (Auto) 0.600, Neut % (Auto) 77.3 H, Lymph % (Auto) 11.8 L, [place] % (Auto) 9.1, Eos % (Auto) 0.3, Baso % (Auto) 0.9, Absolute Neuts (auto) 2.6, Absolute Lymphs (auto) 0.40 L, Nucleated RBC % 0, Differential Comment SCANNED, Diff Path Review Reviewed 09/07/22 23:49: Sodium 123 L, Potassium 3.9, Chloride 85 L, Carbon Dioxide 23.0, Anion Gap 15, BUN 8, Creatinine 1.08, Estim Creat Clear Calc 75.65, Est GFR (MDRD) Af Amer 92, Est GFR (MDRD) Non-Af 76, BUN/Creatinine Ratio 7.4 L, Glucose 76, Calcium 9.5, Total Bilirubin 0.60, AST 148 H, ALT 113 H, Alkaline Phosphatase 93, Total Protein 9.3 H, Albumin 4.4, Globulin 4.9 H, Albumin/Globulin Ratio 0.9, Lipase 11 L 09/07/22 23:49: Ethyl Alcohol 59.0 09/07/22 23:49: Phosphorus 3.2, Magnesium 2.1 09/08/22 00:04: Urine Opiates Screen NEGATIVE, Urine Methadone Screen NEGATIVE, Ur Barbiturates Screen NEGATIVE, Ur Phencyclidine Scrn NEGATIVE, Ur Amphetamines Screen NEGATIVE, MDMA (Ecstasy) Screen NEGATIVE, U Benzodiazepines Scrn NEGATIVE, Urine Cocaine Screen NEGATIVE, U Cannabinoids Screen NEGATIVE, Ur Drug Screen Comment 09/08/22 05:00: WBC 3.7 L, RBC 4.14 L, Hgb 13.5, Hct 38.2 L, MCV 92.3, MCH 32.6 H, MCHC 35.3, RDW Std Deviation 40.7, RDW Coeff of Gale 12.1, Plt Count 176, MPV 8.6, Immature Gran % (Auto) 0.500, Neut % (Auto) 76.8 H, Lymph % (Auto) 12.3 L, [place] % (Auto) 10.1 H, Eos % (Auto) 0.0, Baso % (Auto) 0.3, Absolute Neuts (auto) 2.8, Absolute Lymphs (auto) 0.45 L, Nucleated RBC % 0, Differential Comment SCANNED, Diff Path Review Reviewed 09/08/22 05:00: Sodium 124 L, Potassium 4.3, Chloride 91 L, Carbon Dioxide 24.0, Anion Gap 9, BUN 7, Creatinine 0.71, Estim Creat Clear Calc 115.08, Est GFR (MDRD) Af Amer 149, Est GFR (MDRD) Non-Af 123, BUN/Creatinine Ratio 9.8 L, Glucose 81, Calcium 8.3 L, Total Bilirubin 0.50, AST 102 H, ALT 89 H, Alkaline Phosphatase 79, Total Protein 7.5, Albumin 3.6, Globulin 3.9, Albumin/Globulin Ratio 0.9 Microbiology: Microbiology 09/08/22 00:04 Nasal Secretion SARS-CoV-2 Antigen (Rapid) - Final D/C Instructions Discharge Diet: No restrictions Meaningful Use Info Meaningful Use Diagnoses (Choose all that apply): None applicable Discharge Plan Admission Admit Date/Time: 09/08/22 01:54 Primary Reason for Your Visit: Nausea, vomiting Attending Provider: Estefanía Rivera Primary Care Provider: [facility] Consulting Providers: Marika Boston Instructions Patient Instructions: Grief and Loss, Grief and Loss Coping, Addiction: Getting Help, Addiction: Your Treatment Options, ED Grief Reaction Additional Instructions / Restrictions: DISCHARGE INSTRUCTIONS PLEASE READ *Please take this with you to your next doctors appointment* -It will be very important that you begin counseling and that you follow-up with your physician upon discharge -It is recommended to begin taking a multivitamin with folic acid -A prescription for Zofran (ondansetron) was sent to your preferred pharmacy on file to be taken as needed for several days of symptoms return. -Initially you were to be started on a medicine to work with the amitriptyline to help with mood however given your sodium it is advised to have your lab work checked in 2 to 3 days and verify your sodium level and liver function is stable prior to starting one of these medications -Would recommend lab work (CMP) to check your sodium and liver function in 2 to 3 days through your primary care physician's office. Please call their office upon discharge to obtain order for lab work. - It is strongly advised that you discontinue drinking. If you need help with detox this can always be done in the hospital for safety. If you do desire detox please represent to the hospital or [facility] call [facility] located at [address] [place] [address] (ph [phone]) if you are interested in further resources to help with drinking -If you have any thoughts of harming yourself please call to contact the National suicide prevention Lifeline. You can also text HOME [phone] from anywhere in the [place], this is a crisis text line, or proceed to your nearest emergency department -Please call your primary care provider's office upon discharge to schedule a hospital follow up within 1 week. -For any concerning signs or symptoms please call 911 or proceed to the nearest emergency department Discharge Orders/Prescriptions Prescriptions: New ondansetron HCl 4 mg tablet 4 mg PO Q8H PRN (Reason: nausea and vomiting) Qty: 10 0RF Continued amitriptyline 150 mg QHS [facility]errals [facility] [[facility] - Within 1 Week Disposition Disposition (needs filled in before D/C Order can be placed): Home, Self Care
== END 2022-09-08 16:40 | disposition home or self-care (01) ==
LOC: ED 09-08 01:17 → MS3 09-08 03:41
PROVIDERS: Admitting Provider Family Medicine; Emergency Provider Emergency Medicine; Visit Provider Internal Medicine
DX: R11.2 Nausea with vomiting, unspecified (principal); F10.20 Alcohol dependence, uncomplicated; E87.1 Hypo-osmolality and hyponatremia; F41.9 Anxiety disorder, unspecified; R10.84 Generalized abdominal pain; E86.0 Dehydration; K70.10 Alcoholic hepatitis without ascites; F32.A Depression, unspecified; Z79.899 Other long term (current) drug therapy; F43.22 Adjustment disorder with anxiety
CPT/HCPCS: 36415; 80053; 80307; 82077; 83690; 83735; 84100; 85025; 87811; 96361; 96374; 96375; 97802; 99221; 99285; J7030; A4216; G0378; J2405

== ENCOUNTER 2022-09-22 18:17 | Emergency (ER) | payer OTHER, SELFPAY ==
[2022-09-22 18:18] VITALS: BP 190/108; PULSE 79; RESP 18; TEMP 36.7; O2SAT 100; BMI 27.8
[2022-09-22 20:50] LABS: Absolute Lymphocyte Count 1.55 X10^3/uL (0.83-4.51); Basophil# 0.05 X10^3/uL; Basophil% 1.3 % (0-1); Eosinophil# 0.04 X10^3/uL; Hematocrit 42.5 % (40-54); Hemoglobin 15.2 g/dL (13.0-16.5); Lymphocyte # 1.55 X10^3/ul (0.83-4.51); Lymphocyte % 39.9 % (19-41); Mean Corp Hgb Conc 35.8 g/dL (32-36); Mean Corpuscular Hgb 32.6 pg (27.0-32.0); Mean Corpuscular Volume 91.2 fL (80-94); Mean Platelet Vol. 8.4 fl (6.2-12.0); Monocyte% 5.2 % (0-10); NRBC Flagged by Analyzer 0 % (0-5); Neutrophil # 2.03 X10^3/uL (2.7-7.7); Neutrophil % 52.3 % (47-70); Platelet Count 234 K/mm3 (150-450); RBC Distribution Width CV 12.4 % (11.6-14.6); RBC Distribution Width SD 40.9 fl (35.1-43.9); Red Blood Count 4.66 M/mm3 (4.6-6.2); White Blood Count 3.9 K/mm3 (4.4-11.0)
--- NOTE | 2022-09-22 21:11 | ED.RN ---
Pt is telling staff and Dr Pak that he is not suicidal. But patient did tell social work that he has thoughts of going to bed and not waking up, but Pt does not have a plan. Dr Pak states patient is low risk and does not need a sitter.
[2022-09-22 21:15] LABS: Anion Gap 12 (5-15); BUN 3 mg/dL (7-18); BUN/Creat Ratio 4.2 RATIO (10-20); Calcium,Total 9.3 mg/dL (8.5-10.1); Chloride 80 mmol/L (98-107); Creatinine, Serum 0.72 mg/dL (0.70-1.30); EST Glomerular Filtration Rate 121 mL/min (>60); Est Glom Filt Rate - Afr Amer 147 mL/min (>60); Estimated Creatinine Clearance 112.21 ml/min; Glucose 95 mg/dL (74-106); Potassium 3.9 mmol/L (3.5-5.1); Sodium Level 118 mmol/L (136-145)
--- NOTE | 2022-09-22 22:10 | ED.RN ---
Pt not in room when this RN rounded. Restrooms and ED checked without success. Dr. Pak, charge nurse and police informed.
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
--- NOTE | 2022-09-22 23:10 | EDS_ITS ---
HPI HPI - Psych History of Present Illness Chief Complaint: Mental Health Narrative Narrative: 52-year-old male presenting with depression. He denies to me that he has any suicidal ideation. He states to me that he is depressed that his girlfriend recently of a heart attack in the last couple of weeks. He has been to the ER couple of times for this. Patient is an everyday drinker and states he drinks the same amount of beer every day which is 6-8 beers. Patient knows he has history of hyponatremia as well. Recently admitted for this. Patient states she is not dizzy or lightheaded. PFSH PFS Medical History Alcohol abuse Anxiety and depression Home Medications amitriptyline 150 mg QHS sleep 02/10/21 [History Last Taken Unknown] ondansetron HCl 4 mg tablet 4 mg PO Q8H PRN nausea and vomiting #10 tabs 09/08/22 [Rx Last Taken Unknown] Allergy/AdvReac Type Severity Reaction Status Date / Time Penicillins [PCN] Allergy PT UNSURE Verified 09/22/22 18:19 OF REACTION Family History Mother Rheumatoid arthritis Father Hypertension Surgical History History of carpal tunnel surgery Social History Smoking Status: Never smoker alcohol intake: current alcohol intake frequency: 3 or more drinks per day details: Drinks usually 6-8, 12 ounces beers daily, 09/06/22 15 beers intake. substance use type: does not use ROS ROS ED Constitutional Constitutional ED: Denies chills, fever(s) or sweats Eyes Eyes: Denies blurry vision or change in vision ENT ENT ED: Denies ear pain or sore throat Cardiovascular Cardiovascular: Denies chest pain, palpitations or racing heartbeat Respiratory/Chest Respiratory/Chest: Denies cough, dyspnea or sputum Gastrointestinal Gastrointestinal: Denies abdominal pain, constipation, diarrhea, nausea or vomiting Genitourinary Genitourinary ED: Denies dysuria, hematuria or urinary frequency Musculoskeletal Musculoskeletal: Denies arthralgias, myalgias or neck pain Integumentary Denies abscess, Abrasions or rash Neurologic Neurologic: Denies headache(s), paresthesias or weakness Psychiatric Psychiatric: Reports anxiety and depression; Denies suicidal ideation or suicidal thoughts Endocrine Endocrinology: Denies polydipsia or polyuria EXAM Physical Exam Const Vital Signs: 09/22/22 18:18 Temperature 98.0 F Temperature Source Temporal Pulse Rate 79 Respiratory Rate 18 Blood Pressure 190/108 H Blood Pressure Mean 135 Pulse Ox 100 Oxygen Delivery Method Room Air Positive obese and unkempt General Appearance ED: unkempt and NAD; Negative for pallor Nutritional Appearance: obese HEENT Reports moist mucous membranes normocephalic and atraumatic Eyes PERRL and EOMs intact bilaterally General Eye ED: Negative for pale conjunctiva or scleral icterus Resp normal respiratory effort and clear to auscultation bilaterally Auscultation: Negative for rales, rhonchi or wheezes Cardio Rate: regular rate Rhythm: regular rhythm Extremity normal to inspection Neuro oriented x3 and CN's II-XII intact bilaterally Sensorium / Orientation: alert Psych mental status grossly normal, denies homicidal ideation and denies suicidal ideation Appearance: unkempt Attitude: calm Activity / Motor Behavior: avoids eye contact Thought Content: No phobia(s), No delusion(s) and No hallucination(s) Attention / Concentration: attention grossly intact and concentration grossly intact Insight: fair Judgement: fair Skin General Skin Exam: Negative for jaundice or pallor MDM MDM MDM Narrative Medical decision making narrative: Patient presenting with depression over recent loss of his girlfriend. After speaking with social work this appears to be his third visit. He does not admit to being homicidal or suicidal to me. He states that he does have his own children to live for and his girlfriend children. He states he would not hurt himself. He is an everyday drinker and states he drinks 6-8 beers a day. I did obtain screening lab work and his CBC shows white blood count of 3.9, hemoglobin 15.2, platelets 234. Renal function appears to be normal however the patient's sodium is 118 chloride 80. EtOH was 349. I suspect this is likely due to beer Potomania given the patient's drink. The mental health social worker relayed to me that he admitted to her that he had thoughts of suicide but did not have any plan. For me he did not admit to any suicidal ideation or plan. And again the reasons that he wanted to live. I do not believe he needs to be admitted. We will give him resources. I did attempt to admit him for detox and for hyponatremia but he does decline. Although he is intoxicated he does appear to have capacity to make this decision. he declines. Return precautions were discussed. Impression: 1. Hyponatremia 2. Alcohol intoxication 3. Depression Lab Data Attestation: I reviewed the patient's lab results. Labs: Laboratory Results - last 24 hr 09/22/22 09/22/22 09/22/22 20:40 20:40 20:40 WBC 3.9 L RBC 4.66 Hgb 15.2 Hct 42.5 MCV 91.2 MCH 32.6 H MCHC 35.8 RDW Std Deviation 40.9 RDW Coeff of Gale 12.4 Plt Count 234 MPV 8.4 Immature Gran % (Auto) 0.300 Neut % (Auto) 52.3 Lymph % (Auto) 39.9 [place] % (Auto) 5.2 Eos % (Auto) 1.0 Baso % (Auto) 1.3 H Absolute Neuts (auto) 2.0 Absolute Lymphs (auto) 1.55 Nucleated RBC % 0 Sodium 118 L* Potassium 3.9 Chloride 80 L Carbon Dioxide 26.0 Anion Gap 12 BUN 3 L Creatinine 0.72 Estim Creat Clear Calc 112.21 Est GFR (MDRD) Af Amer 147 Est GFR (MDRD) Non-Af 121 BUN/Creatinine Ratio 4.2 L Glucose 95 Calcium 9.3 Ethyl Alcohol 349.0 H* Discharge Plan Triage Chief Complaint: Mental Health ED Provider: Mk Pak Dx/Rx/DC Orders Prescriptions: No Action amitriptyline 150 mg QHS ondansetron HCl 4 mg tablet 4 mg PO Q8H PRN (Reason: nausea and vomiting) Qty: 10 0RF [facility] [Primary Care Provider] -
== END 2022-09-22 22:10 | disposition left against medical advice (07) ==
PROVIDERS: Emergency Provider Student in an Organized Health Care Education/Training Program; Visit Provider Student in an Organized Health Care Education/Training Program
DX: E87.1 Hypo-osmolality and hyponatremia (principal); F10.129 Alcohol abuse with intoxication, unspecified; F32.A Depression, unspecified; E66.9 Obesity, unspecified
CPT/HCPCS: 80048; 82077; 85025; 99281

== ENCOUNTER 2022-09-25 12:57 | Emergency (ER) | payer OTHER, SELFPAY ==
[2022-09-25 12:57] VITALS: BP 161/119; PULSE 107; RESP 18; TEMP 36.1; O2SAT 100; BMI 25.1
--- NOTE | 2022-09-25 13:13 | EX.ED.DYSGE1 ---
HPI History of Present Illness Chief Complaint: Weakness [facility] Medical History Alcohol abuse Anxiety and depression Home Medications amitriptyline 150 mg QHS sleep 02/10/21 [History Last Taken Unknown] ondansetron HCl 4 mg tablet 4 mg PO Q8H PRN nausea and vomiting #10 tabs 09/08/22 [Rx Last Taken Unknown] promethazine 25 mg tablet 25 mg PO TID PRN nausea and vomiting #20 tabs 09/25/22 [Rx Last Taken Unknown] Allergy/AdvReac Type Severity Reaction Status Date / Time No Known Allergies Allergy Verified 09/25/22 14:14 Family History Mother Rheumatoid arthritis Father Hypertension Surgical History History of carpal tunnel surgery Social History Smoking Status: Never smoker alcohol intake: current alcohol intake frequency: 3 or more drinks per day details: Drinks usually 6-8, 12 ounces beers daily, 09/06/22 15 beers intake. substance use type: does not use EXAM Physical Exam Const Vital Signs: 09/25/22 12:57 09/25/22 14:55 Temperature 97.0 F L Temperature Source Temporal Pulse Rate 107 H 90 Respiratory Rate 18 20 H Blood Pressure 161/119 H 139/86 H Blood Pressure Mean 133 103 Pulse Ox 100 100 Oxygen Delivery Method Room Air MDM MDM MDM Narrative Medical decision making narrative: HISTORY OF PRESENT ILLNESS: 52-year-old male here with nausea vomiting and weakness. The patient states is been ongoing for the last day. He states he had intractable nausea and vomiting. No hemoptysis noted. He denies any olivia abdominal pain. Last bowel was yesterday. Denies constipation or diarrhea. Denies any sick contacts. States he has not drink alcohol in the last 24 hours. REVIEW OF SYSTEMS: Pertinent positives: Nausea vomiting, diffuse weakness Pertinent negatives: Focal weakness, abdominal pain chest pain or shortness of PHYSICAL EXAM: Nursing triage notes reviewed, Vital signs reviewed Constitutional: please see mdm HENT: MMM Eyes: Pupils equal round and reactive to light, Extraocular muscles intact Neck: No stridor, no JVD, full neck ROM Lungs: Clear to auscultation, No wheezing or rales. No increased work of breathing, no conversational dyspnea, no accessory muscle use, no nasal flaring. No respiratory distress noted Heart: Regular rate and rhythm, No murmurs, No rubs and No gallops, 2+ distal pulses (radial, femoral, posterior tibial) in all extremities Abdomen: Soft, there is no tenderness, rigidity, rebound or guarding, no obvious peritoneal signs, no palpable pulsatile abdominal masses, no auscultated abdominal bruit : No CVAT Extremities: No edema Neuro: No focal neurological deficits, cranial nerves II through XII intact, 5/5 strength in all extremities. Intact sensation to light touch in all extremities, 2+ reflexes bilateral patella tendons. Normal gait. No ataxia. Skin: No rash or lesions noted MEDICAL DECISION MAKING: Chief Complaint: Nausea vomiting External records reviewed: Admitted in August 2022 for acute alcoholic hepatitis, intractable nausea and vomiting MDM Narrative: Patient was hemodynamically stable, afebrile, nontoxic-appearing but abdominal exam was benign not consistent with acute surgical process. I considered ordering a CT scan of the abdomen without this was unnecessary and likely had high risk (CT does malignancy) then benefits given the benign nature of his abdominal exam. CIWA score was low, low suspicion for alcohol withdrawal at this time I was concerned about alcoholic ketoacidosis, dehydration, pancreatitis, gastritis, hepatobiliary obstruction electrolyte abnormalities. I obtained a broad lab work-up to further elucidate the etiology the patient's complaints. Labs without evidence of leukocytosis to suggest significant systemic inflammation, no significant anemia, patient did have hyponatremia this was improved from baseline, he had no significant kidney dysfunction, he did have worsening hyperbilirubinemia, no evidence of pancreatitis. Patient was treated with thiamine, IV Zofran, normal saline and D5 normal saline. I suspect the patient's presentation is secondary to his chronic alcohol abuse with beer Potomania and alcoholic ketoacidosis. Patient was initially hypertensive, tachycardia resolved after fluid resuscitation. He was encouraged to seek outpatient alcohol treatment. Factors affecting care: Alcohol abuse, depression, Social determinants of health: Current alcohol intake Fematrix per day History obtained from others: none Shared decision making: I will have a discussion with the patient and or visitors regarding risk/benefits of further testing or admission. They will be made aware of of the risk/benefits inherent in this decision they will be given the opportunity to voice understanding. Consults: None Lab Data Attestation: I reviewed the patient's lab results. Lab results narrative: CBC without leukocytosis, severe anemia, no thrombocytopenia. BMP with hyponatremia, elevated anion gap suggestive of alcoholic ketoacidosis, no SAL LFTs with worsening hyperbilirubinemia, essentially baseline liver enzymes, Lipase is wnl indicating no pancreatic inflammation. Labs: Laboratory Results - last 24 hr 09/25/22 09/25/22 13:30 13:30 WBC 4.8 RBC 4.65 Hgb 15.3 Hct 42.1 MCV 90.5 MCH 32.9 H MCHC 36.3 H RDW Std Deviation 41.6 RDW Coeff of Gale 12.8 Plt Count 216 MPV 8.7 Immature Gran % (Auto) 0.400 Neut % (Auto) 80.5 H Lymph % (Auto) 7.5 L [place] % (Auto) 10.8 H Eos % (Auto) 0.4 Baso % (Auto) 0.4 Absolute Neuts (auto) 3.9 Absolute Lymphs (auto) 0.36 L Nucleated RBC % 0 Differential Comment SCANNED Sodium 124 L Potassium 3.8 Chloride 80 L Carbon Dioxide 28.0 Anion Gap 16 H BUN 11 Creatinine 1.23 Estim Creat Clear Calc 65.68 Est GFR (MDRD) Af Amer 80 Est GFR (MDRD) Non-Af 66 BUN/Creatinine Ratio 8.9 L Glucose 98 Calcium 10.1 Total Bilirubin 1.30 H Direct Bilirubin 0.43 H AST 98 H ALT 106 H Alkaline Phosphatase 89 Total Protein 9.7 H Albumin 4.5 Globulin 5.2 H Lipase 23 Discharge Plan Triage Chief Complaint: Weakness Other Complaint: Nausea/Vomiting ED Provider: Pj Steen Dx/Rx/DC Orders Clinical Impression: Nausea & vomiting, Acute hyponatremia, Hyperbilirubinemia, Alcoholic ketoacidosis Instructions: ED Hyponatremia, ED Vomiting (Adult) Prescriptions: New promethazine 25 mg tablet 25 mg PO TID PRN (Reason: nausea and vomiting) Qty: 20 0RF No Action amitriptyline 150 mg QHS ondansetron HCl 4 mg tablet 4 mg PO Q8H PRN (Reason: nausea and vomiting) Qty: 10 0RF Stand Alone Forms: ED Work / School Excuse [facility] [Primary Care Provider] - Activity Restrictions/Additional Instructions: Thank you for trusting us with your care today! Please take Tylenol (2 pills, 650 mg), ibuprofen (2 pills, 400 mg) every 6 hours as needed for pain and fever control. Please take Phenergan as needed for nausea and vomiting. Please return to the emergency department if your symptoms change or worsen. Please follow with your primary care physician for further outpatient evaluation and management. Disposition Disposition: Home, Self Care
[2022-09-25 13:42] LABS: Absolute Lymphocyte Count 0.36 X10^3/uL (0.83-4.51); Absolute Neutrophil Count 3.9 X10^3/uL (2.0-7.7); Basophil# 0.02 X10^3/uL; Basophil% 0.4 % (0-1); Eosinophil# 0.02 X10^3/uL; Eosinophils% 0.4 % (0-5); Hematocrit 42.1 % (40-54); Hemoglobin 15.3 g/dL (13.0-16.5); Lymphocyte # 0.36 X10^3/ul (0.83-4.51); Lymphocyte % 7.5 % (19-41); Mean Corp Hgb Conc 36.3 g/dL (32-36); Mean Corpuscular Hgb 32.9 pg (27.0-32.0); Mean Corpuscular Volume 90.5 fL (80-94); Mean Platelet Vol. 8.7 fl (6.2-12.0); Monocyte# 0.52 X10^3/uL; Monocyte% 10.8 % (0-10); NRBC Flagged by Analyzer 0 % (0-5); Neutrophil # 3.87 X10^3/uL (2.7-7.7); Neutrophil % 80.5 % (47-70); POSITIVE DIFFERENTIAL YES; Platelet Count 216 K/mm3 (150-450); RBC Distribution Width CV 12.8 % (11.6-14.6); RBC Distribution Width SD 41.6 fl (35.1-43.9); Red Blood Count 4.65 M/mm3 (4.6-6.2); White Blood Count 4.8 K/mm3 (4.4-11.0)
[2022-09-25 13:43] LABS: Differential Indicated SCAN CRITERIA MET
[2022-09-25 13:47] LABS: Differential Comment SCANNED
[2022-09-25 13:54] LABS: AST(SGOT) 98 U/L (15-37); Alanine Aminotransfer ALT/SGPT 106 U/L (16-61); Albumin, Serum 4.5 g/dL (3.2-5.0); Alkaline Phosphatase 89 U/L (45-117); Anion Gap 16 (5-15); BUN 11 mg/dL (7-18); BUN/Creat Ratio 8.9 RATIO (10-20); Bilirubin, Direct 0.43 mg/dL (0.00-0.30); Calcium,Total 10.1 mg/dL (8.5-10.1); Chloride 80 mmol/L (98-107); Creatinine, Serum 1.23 mg/dL (0.70-1.30); EST Glomerular Filtration Rate 66 mL/min (>60); Est Glom Filt Rate - Afr Amer 80 mL/min (>60); Estimated Creatinine Clearance 65.68 ml/min; Globulin 5.2 g/dL (2.2-4.2); Glucose 98 mg/dL (74-106); Lipase 23 U/L (13-75); Potassium 3.8 mmol/L (3.5-5.1); Protein, Total 9.7 g/dL (6.4-8.2); Sodium Level 124 mmol/L (136-145)
[2022-09-25] MEDS: 0.9% Normal Saline 1,000 ML 1000 ML IV (13:54)
[2022-09-25] MEDS: Ondansetron 4 MG/2 ML Vial IV (13:54)
[2022-09-25 14:55] VITALS: BP 139/86; PULSE 90; RESP 20; O2SAT 100
[2022-09-25] MEDS: Dextrose 5%/0.9% NaCl 1,000 ML 1000 ML IV (14:55)
== END 2022-09-25 16:31 | disposition home or self-care (01) ==
PROVIDERS: Emergency Provider Emergency Medicine; Visit Provider Emergency Medicine
DX: R11.2 Nausea with vomiting, unspecified (principal); E87.1 Hypo-osmolality and hyponatremia; E80.6 Other disorders of bilirubin metabolism; E87.29 Other acidosis
CPT/HCPCS: 80048; 80076; 83690; 85025; 96365; 96366; 96367; 96375; 99284; J7030; A4216; J2405; J3490

== ENCOUNTER 2023-02-13 09:35 | Observation (INO) | payer OTHER, SELFPAY ==
[2023-02-13 09:37] VITALS: BP 140/79; PULSE 82; RESP 13; TEMP 36.2; O2SAT 97; BMI 27.7
--- NOTE | 2023-02-13 09:50 | CT_ITS ---
STUDY: CT CERVICAL SPINE WITHOUT CONTRAST REASON FOR EXAM: Male, 52 years old. Trauma due to a fall. RADIATION DOSAGE (If Supplied By Facility): CTDIvol = ( 26.33 ) mGy, DLP = ( 474.99 ) mGycm TECHNIQUE: High resolution transaxial imaging was performed without contrast material. Sagittal and coronal images were reconstructed. Individualized dose optimization techniques were used for this CT. COMPARISON: None FINDINGS: Normal craniovertebral junction. Normal anterior atlantoaxial articulation. Normal odontoid process. There is straightening of the normal cervical lordosis. Normal vertebral bodies and posterior osseous elements. C2-3: Normal endplates. Normal disc height and morphology. Normal central canal and intervertebral neuroforamina. C3-4: Normal endplates. Normal disc height and morphology. Normal central canal and intervertebral neuroforamina. C4-5: Normal endplates. Normal disc height and morphology. Normal central canal and intervertebral neuroforamina. C5-6: Moderate degree of disc space narrowing and spondylosis. Uncovertebral arthrosis. Mild degree of bilateral neural foraminal stenosis. C6-7: Mild degree of disc space narrowing. Spondylosis. No significant stenosis seen. C7-T1: Normal endplates. Normal disc height and morphology. Normal central canal and intervertebral neuroforamina. Atherosclerotic plaque formation of the carotid bifurcations bilaterally. CT/Spine Cervical without Contras IMPRESSION: Multilevel degenerative changes, as described above. Straightening of the normal cervical lordosis. Electronically Signed: Mahad Felder MD at 11:03 EDT ,
--- NOTE | 2023-02-13 09:51 | CT_ITS ---
STUDY: CT BRAIN WITHOUT CONTRAST REASON FOR EXAM: Male, 52 years old. Trauma due to a fall. RADIATION DOSAGE (If Supplied By Facility): CTDIvol = ( 44.99 ) mGy, DLP = ( 846.73 ) mGycm TECHNIQUE: Transaxial CT imaging of the brain was performed without administration of intravenous contrast material. Individualized dose optimization techniques were used for this CT. COMPARISON: No relevant priors. FINDINGS: Small scalp hematoma overlying the superior aspect of the left occipital bone. Normal calvarium. There is mild cerebral atrophy with widening of the extra-axial spaces and ventricular dilatation. Normal white matter tracts of the cerebral hemispheres. Normal basal ganglia and thalami. Normal brainstem. Prominence of the cisterna magna. This is a normal variant. There is no intracranial hemorrhage. There are no findings of an acute ischemic infarction. Mild degree of mucosal thickening along the lateral wall of the left maxillary sinus. CT/Brain/Head without Contrast IMPRESSION: Chronic involutional changes of the brain. Small scalp hematoma overlying the left occipital bone superiorly. Electronically Signed: Mahad Felder MD at 11:01 EDT ,
--- NOTE | 2023-02-13 09:59 | EX.ED.GENINJ ---
HPI History of Present Illness Chief Complaint: Fall Detail of Chief Complaint: Fall on the way to work. 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 Patient is not awake or alert. Current Severity: 0/10 Maximum Severity: 0/10 Worsened by: Nothing per patient Relieved by: Not applicable Associated Symptoms Associated Symptoms: Positive for - (Patient denies loss of conscious, inability to ambulate. He states he tripped over the curb.) Narrative Narrative: Patient is a 52-year-old male who admits to drinking 6-8 beers a day. He states his last drink was at 9. When asked 9 AM or 9 PM he hesitated prior to responding 9 PM. Patient apparently been falling recently. He told triage she may have taken an extra amitriptyline which was prescribed for sleep. He denies headache. Denies neck pain. He denies dental pain. He denies chest pain. He denies abdominal pain. He denies bruising easily. He denies being on antiplatelet or anticoagulant. Patient denies chest pain or shortness of breath. Patient denies black or maroon-colored stool. Patient denies urologic symptoms. Patient volunteered that he has been blacking out. Asked what he meant by blacking out. Patient states I blacked out . He apparently was diagnosed with obstructive sleep apnea several years ago. He does not use a BiPAP machine or CPAP machine. Tetanus Immunization: Unknown Prior similar symptoms: No Recent Illness/Hospitalization: No PFSH PFSH Medical History Alcohol abuse Anxiety and depression Home Medications amitriptyline 150 mg tablet 150 mg PO QHS 02/13/23 [History Last Taken 02/11/23] multivitamin (Daily Multi-Vitamin tablet) 1 tab PO DAILY 02/13/23 [History Last Taken Unknown] Allergy/AdvReac Type Severity Reaction Status Date / Time No Known Allergies Allergy Verified 02/13/23 09:36 Family History Mother Rheumatoid arthritis Father Hypertension Surgical History History of carpal tunnel surgery Social History (Updated 02/13/23 @ 10:[address] Sree Gentile MD) household members: none Smoking Status: Never smoker alcohol intake: current alcohol intake frequency: 3 or more drinks per day details: Drinks usually 6-8, 12 ounces beers daily, 09/06/22 15 beers intake. substance use type: does not use ROS ROS ED Review of Systems ROS Unobtainable: due to mental status Constitutional Constitutional ED: Denies chills or fever(s) Eyes Eyes: Denies blurry vision or change in vision ENT ENT ED: Reports other Details: He denies his teeth not lining up. He denies pain. ; Denies ear pain, rhinorrhea or sore throat Cardiovascular Cardiovascular: Denies chest pain, palpitations or paroxysmal nocturnal dyspnea Respiratory/Chest Respiratory/Chest: Denies cough, dyspnea, dyspnea on exertion or paroxysmal nocturnal dyspnea Gastrointestinal Gastrointestinal: Denies abdominal pain, melena, nausea or vomiting Genitourinary Genitourinary ED: Denies dysuria, hematuria or urinary frequency Musculoskeletal Musculoskeletal: Denies arthralgias, back pain, myalgias or neck pain Integumentary Reports Abrasions Neurologic Neurologic: Denies headache(s) or paresthesias Psychiatric Psychiatric: Reports depression Endocrine Endocrinology: Denies cold intolerance or heat intolerance Hematologic/Lymphatic Hematologic/Lymphatic: Denies easy bleeding or easy bruising EXAM Physical Exam Const Vital Signs: 02/13/23 09:37 02/13/23 09:41 Temperature 97.1 F L Temperature Source Temporal Pulse Rate 82 Respiratory Rate 13 Respiratory Effort Normal Non-Labored Respiratory Depth Normal Respiratory Pattern Normal Blood Pressure 140/79 H Blood Pressure Mean 99 Pulse Ox 97 Oxygen Delivery Method Room Air Positive well nourished, well developed and obese Constitutional Narrative: Patient has multiple abrasions and contusions to his face, chest, right shoulder. Patient is not awake nor is he alert. He does open his eyes and will respond to questions when asked. At times he requires tactile stimulus. General Appearance ED: well developed Nutritional Appearance: obese HEENT HEENT Narrative: Patient has multiple abrasions contusions to the face. There is no septal deviation hematoma. There is no hemotympanum. There is no CSF otorrhea or rhinorrhea. There is no yi sign or raccoon sign. Eyes PERRL and EOMs intact bilaterally General Eye ED: Yes other Other Details: There is no subconjunctival hemorrhage. There is no step-off of the infraorbital rim. He denies hyperesthesia infraorbital nerve. Patient does have nystagmus which raises question for intracranial process or possible metal cause and specifically alcohol. Neck Neck Narrative: Patient planed up to palpation of his neck. C-collar was ordered. Trachea is midline. There is no JVD. There is no crepitus. Chest Wall palpation of chest normal; Negative for inspection of chest normal Chest Narrative: Patient has contusions to his anterior chest bilaterally. Resp normal respiratory effort and clear to auscultation bilaterally Resp Narrative: Breath sounds may be slightly diminished due to effort. Breath sounds are symmetric. There is no hyperresonance to percussion. Cardio regular rhythm, S1 normal heart sound, S2 normal heart sound and no murmurs Rate: regular rate GI normal to inspection, nondistended, normoactive bowel sounds, non-tender, non-distended and no masses Palpation: soft Back/Spine normal to inspection and no thoracic nor lumbar tenderness Extremity full ROM; Negative for normal to inspection Extremity Narrative: Patient has significant contusion over the proximal portion of the right humerus. He is able to internal/external rotate 80 B DOC to 110 degrees. Axillary, median, radial and ulnar function intact. There is no pain the patient over the lateral medial epicondyle, electron process or radial head. Is no pain ovation over the distal radius or ulna, carpal bones or metacarpal bones. There is no pain ovation of the phalanges. Neuro oriented x3, CN's II-XII intact bilaterally and moves all extremities Neuro Narrative: There is no clonus or Babinski sign noted. Sensorium / Orientation: Negative for alert Plantar Reflex: Downgoing: bilateral Psych Psych Narrative: Difficult to assess because patient has depressed level of consciousness. Skin no rashes or lesions noted Trauma: abrasion MDM MDM MDM Narrative Medical decision making narrative: C-spine cannot be cleared per Nexus criteria and based on the [place] CT head rule and Lincoln rule imaging of the head is indicated. Therefore CT of the head and neck were ordered. X-ray of the chest was obtained to assess for pneumothorax or obvious fractured ribs. Since patient has full active range of motion of his right upper extremity in spite of the large contusion images were not obtained. Alcohol level was obtained since there was concern that patient is intoxicated. PT/INR was obtained to assess liver function and because of concern for coagulopathy due to alcoholism. He states he is been drinking daily since age of 16. He admits to 6-8 beers minimum per day. Tetanus was updated. Patient was asked if he did have a been through a detox program. He states that the [facility] 6 years ago. He was asked if he would want to go through detox again and he declined. History & Record Review Additional record(s) reviewed:: Prior ED visit and Prior labs (Liver enzymes have been elevated in the past. We will obtain liver enzymes today.) Lab Data Attestation: I reviewed the patient's lab results. Lab results narrative: Patient has mild anemia. He is neutropenic. He has been neutropenic in the past. Patient alcohol level is 180. This would explain his altered mental status and nystagmus since there is no evidence of intracranial abnormality per my read. Awaiting formal read by radiologist. Patient's sodium is 114 baseline is between 124 and 126. Contacted the agricultural research technician. Spoke with Dr. Sudheer Salcido. Discussed correcting his sodium with normal saline versus hypertonic. He asked what his alcohol level was. Based on alcohol level he recommended normal saline. Will contact hospitalist for admission. Labs: Laboratory Results - last 24 hr 02/13/23 10:21 WBC 2.9 L RBC 3.48 L Hgb 11.5 L Hct 31.7 L MCV 91.1 MCH 33.0 H MCHC 36.3 H RDW Std Deviation 41.0 RDW Coeff of Gale 12.5 Plt Count 150 MPV 8.8 Immature Gran % (Auto) 1.000 H Neut % (Auto) 63.4 Lymph % (Auto) 19.5 [place] % (Auto) 13.4 H Eos % (Auto) 1.7 Baso % (Auto) 1.0 Absolute Neuts (auto) 1.9 L Absolute Lymphs (auto) 0.57 L Nucleated RBC % 0 Differential Comment COMMENT Diff Path Review May foll PT 13.2 INR 1.0 Sodium 114 L* Potassium 3.5 Chloride 80 L Carbon Dioxide 22.0 Anion Gap 12 BUN 5 L Creatinine 0.74 Estim Creat Clear Calc 109.17 Est GFR (MDRD) Af Amer 142 Est GFR (MDRD) Non-Af 118 BUN/Creatinine Ratio 6.7 L Glucose 88 Calcium 8.2 L Total Bilirubin 0.80 Direct Bilirubin 0.23 AST 44 H ALT 34 Alkaline Phosphatase 65 Total Protein 7.7 Albumin 3.7 Globulin 4.0 Ethyl Alcohol 180.0 Radiography Diagnostic Testing: Clinical Impression(s) from Imaging Studies Cervical Spine CT 02/13/23 09:50 IMPRESSION: Multilevel degenerative changes, as described above. Straightening of the normal cervical lordosis. Electronically Signed: Mahad Felder MD at 11:03 EDT , Brain CT 02/13/23 09:51 IMPRESSION: Chronic involutional changes of the brain. Small scalp hematoma overlying the left occipital bone superiorly. Electronically Signed: Mahad Felder MD at 11:01 EDT , CT of the head reveals subcutaneous hematoma and mild thickening of the left maxillary sinus. There is no evidence of intracranial bleed. CT of the neck reveals significant degenerative changes. There is no prevertebral soft tissue swelling. There is no evidence of subluxation or dislocation. Awaiting formal read by radiologist, 1041 EKG Initial EKG: Attestation: I personally reviewed and interpreted this EKG as follows: Interpretation: Sinus Rhythm (Sinus rhythm rate of 79 with a first-degree AV block. OH interval is 262 ms. Cures duration is prolonged at 118 ms and there is RSR prime in V1 and V2 suggestive of right bundle branch block. There is decreased anterior force noted. QT duration 396 ms. [place] is normal) Management Discussion w/another healthcare provider: Hospitalist (Hospitalist was paged for admission for hyponatremia.) and Grain Cleaner And Transfer Operator (Spoke with Dr. Sudheer Salcido regarding the patient's hyponatremia. Plan is to correct slowly with normal saline.) Critical Care Time Critical Care Time: Yes Critical care time (excluding procedures): 30-74 minutes (31), Including time spent: (History, physical, documentation, interpretation laboratory results, review of prior records), Discussing w/Patient &/or Family/Master Control Engineer (Discussion with patient regarding laboratory findings and detox), Discussing w/Consultants (Discussion with Dr. Sudheer Salcido regarding use of saline versus hypertonic saline solution) and Arranging Admission or Transfer (Hospitalist was paged for admission) Discharge Plan Dx/Rx/DC Orders Clinical Impression: Acute hyponatremia, Depression, Alcohol intoxication in active alcoholic, Contusion of scalp, face, and neck, excluding eyes, Contusion of right shoulder, Chest wall contusion, Acute cervical myofascial strain, Neutropenia, Anemia, unspecified, Acute alteration in mental status Disposition Disposition: Acute Care Hospital [facility]
[2023-02-13 10:28] LABS: Absolute Lymphocyte Count 0.57 X10^3/uL (0.83-4.51); Absolute Neutrophil Count 1.9 X10^3/uL (2.0-7.7); Basophil# 0.03 X10^3/uL; Eosinophil# 0.05 X10^3/uL; Eosinophils% 1.7 % (0-5); Hematocrit 31.7 % (40-54); Hemoglobin 11.5 g/dL (13.0-16.5); Lymphocyte # 0.57 X10^3/ul (0.83-4.51); Lymphocyte % 19.5 % (19-41); Mean Corp Hgb Conc 36.3 g/dL (32-36); Mean Corpuscular Volume 91.1 fL (80-94); Mean Platelet Vol. 8.8 fl (6.2-12.0); Monocyte# 0.39 X10^3/uL; Monocyte% 13.4 % (0-10); NRBC Flagged by Analyzer 0 % (0-5); Neutrophil # 1.85 X10^3/uL (2.7-7.7); Neutrophil % 63.4 % (47-70); POSITIVE DIFFERENTIAL YES; Platelet Count 150 K/mm3 (150-450); RBC Distribution Width CV 12.5 % (11.6-14.6); Red Blood Count 3.48 M/mm3 (4.6-6.2); White Blood Count 2.9 K/mm3 (4.4-11.0)
[2023-02-13 10:31] LABS: Differential Indicated SCAN CRITERIA MET
[2023-02-13 10:44] LABS: Prothrombin Time (Protime)PT. 13.2 SECONDS (11.7-14.9)
[2023-02-13 10:49] LABS: AST(SGOT) 44 U/L (15-37); Alanine Aminotransfer ALT/SGPT 34 U/L (16-61); Albumin, Serum 3.7 g/dL (3.2-5.0); Alkaline Phosphatase 65 U/L (45-117); Anion Gap 12 (5-15); BUN 5 mg/dL (7-18); BUN/Creat Ratio 6.7 RATIO (10-20); Bilirubin, Direct 0.23 mg/dL (0.00-0.30); Calcium,Total 8.2 mg/dL (8.5-10.1); Chloride 80 mmol/L (98-107); Creatinine, Serum 0.74 mg/dL (0.70-1.30); EST Glomerular Filtration Rate 118 mL/min (>60); Est Glom Filt Rate - Afr Amer 142 mL/min (>60); Estimated Creatinine Clearance 109.17 ml/min; Glucose 88 mg/dL (74-106); Potassium 3.5 mmol/L (3.5-5.1); Protein, Total 7.7 g/dL (6.4-8.2); Sodium Level 114 mmol/L (136-145)
[2023-02-13] MEDS: 0.9% Normal Saline (1000mL) 1,000 ML 250 ML IV ×4 (11:00→23:35)
[2023-02-13] MEDS: Diphth,Pertuss(Acell),Tet Vac 0.5 ML Vial IM (11:03)
[2023-02-13 11:40] VITALS: BP 127/73; PULSE 83; RESP 19; TEMP 36.3; O2SAT 99
[2023-02-13 14:21] VITALS: BP 143/99; PULSE 85; RESP 18; TEMP 36.6; O2SAT 97; BMI 28.1
[2023-02-13] MEDS: 0.9% Saline Lock 10 ML Syringe IV (15:39)
--- NOTE | 2023-02-13 16:22 | HP.PCM.HOS_ITS ---
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 He does drink excessively and this morning on admission to the ER he had a blood alcohol of 180. He says that on occasion he does get blackout drunk, he drinks about 6-8 beers a day and he states that his last drink was at 9 PM last night which cannot happen given his blood alcohol level of 180 this morning so his last drink was likely at 9 AM. He says that he went through detox 6 years ago and he does not want to go through that again. I offered him our version of detox here and he does not want to quit drinking I explained to him that it is his drinking is causing all of his problems and he stated that he was okay with continuing to drink. He was admitted to the hospital secondary to hyponatremia at 114, he is chronically hyponatremic secondary to his drinking but he is normally around 123-125 and today he was 114. [facility] Medical History Alcohol abuse Anxiety and depression Home Medications amitriptyline 150 mg tablet 150 mg PO QHS 02/13/23 [History Last Taken 02/11/23] multivitamin (Daily Multi-Vitamin tablet) 1 tab PO DAILY 02/13/23 [History Last Taken Unknown] Allergy/AdvReac Type Severity Reaction Status Date / Time No Known Allergies Allergy Verified 02/13/23 09:36 Family History Mother Rheumatoid arthritis Father Hypertension Surgical History History of carpal tunnel surgery Social History (Updated 02/13/23 @ 10:[address] Sree Gentile MD) household members: none Smoking Status: Never smoker alcohol intake: current alcohol intake frequency: 3 or more drinks per day details: Drinks usually 6-8, 12 ounces beers daily, 09/06/22 15 beers intake. substance use type: does not use ROS Constitutional Constitutional: Denies chills, fatigue, fever(s) or malaise Eyes Eyes: Denies blurry vision ENT HEENT: Denies headache(s) or nasal discharge Cardiovascular Cardiovascular: Denies chest pain, dyspnea on exertion or syncope Respiratory/Chest Respiratory/Chest: Denies cough, shortness of breath at rest or shortness of breath with exertion Gastrointestinal Gastrointestinal: Denies constipation, diarrhea, nausea or vomiting Genitourinary Genitourinary: Denies dysuria Integumentary Integumentary: Reports wounds Neurologic Neurologic: Denies focal weakness, numbness or tremor(s) Psychiatric Psychiatric: Reports depression; Denies anxiety Vital Signs Vital Signs Vital Signs: 02/13/23 09:37 02/13/23 09:41 02/13/23 11:40 Temperature 97.1 F L 97.4 F L Temperature Source Temporal Temporal Pulse Rate 82 83 Respiratory Rate 13 19 H Respiratory Effort Normal Non-Labored Respiratory Depth Normal Respiratory Pattern Normal Blood Pressure 140/79 H 127/73 H Blood Pressure Mean 99 91 Blood Pressure Source Blood Pressure Position Blood Pressure Location Pulse Ox 97 99 Oxygen Delivery Method Room Air Room Air 02/13/23 14:21 Temperature 97.9 F Temperature Source Oral Pulse Rate 85 Respiratory Rate 18 Respiratory Effort Respiratory Depth Respiratory Pattern Blood Pressure 143/99 H Blood Pressure Mean 113 Blood Pressure Source Monitor Blood Pressure Position Semi-Fowlers Blood Pressure Location Right Arm Pulse Ox 97 Oxygen Delivery Method Room Air Weight Weight: 179 lb 14.355 oz Body Mass Index (BMI) 28.1 Physical Exam Narrative General: Alert, Oriented x3, Cooperative, No apparent distress HEENT: Atraumatic, PERRLA, EOMI, Normocephalic Oral: Moist Mucosa Neck: Supple, No JVD Lungs: Diminished, Normal air movement, No rhonchi, No wheeze, No rales Cardiovascular: Regular rate, Regular Rhythm, Normal S1, Normal S2, No murmurs Abdomen: Soft, Non Tender, Non-Distended, No Hepato-splenomegaly Extremities: No edema, Capillary Refill Less than 3 Seconds Skin: Multiple abrasions, none show signs of infection Musculoskeletal: No Tenderness to Palpation of Joints or Extremities Neurological: Cranial nerves II-XII grossly intact, Motor Exam 5/5 strength throughout, Sensory exam intact to light touch and pain Psych/Mental Status: Flat Results Lab / Micro Data 02/13/23 10:21 02/13/23 10:21 Labs: Laboratory Results - last 24 hr 02/13/23 10:21: WBC 2.9 L, RBC 3.48 L, Hgb 11.5 L, Hct 31.7 L, MCV 91.1, MCH 33.0 H, MCHC 36.3 H, RDW Std Deviation 41.0, RDW Coeff of Gale 12.5, Plt Count 150, MPV 8.8, Immature Gran % (Auto) 1.000 H, Neut % (Auto) 63.4, Lymph % (Auto) 19.5, [place] % (Auto) 13.4 H, Eos % (Auto) 1.7, Baso % (Auto) 1.0, Absolute Neuts (auto) 1.9 L, Absolute Lymphs (auto) 0.57 L, Nucleated RBC % 0, Differential Comment COMMENT, Diff Path Review September foll, PT 13.2, INR 1.0, Sodium 114 L*, Potassium 3.5, Chloride 80 L, Carbon Dioxide 22.0, Anion Gap 12, BUN 5 L, Creatinine 0.74, Estim Creat Clear Calc 109.17, Est GFR (MDRD) Af Amer 142, Est GFR (MDRD) Non-Af 118, BUN/Creatinine Ratio 6.7 L, Glucose 88, Calcium 8.2 L, Total Bilirubin 0.80, Direct Bilirubin 0.23, AST 44 H, ALT 34, Alkaline Phosphatase 65, Total Protein 7.7, Albumin 3.7, Globulin 4.0, Ethyl Alcohol 180.0 Radiology Impression Cervical Spine CT 02/13/23 09:50 IMPRESSION: Multilevel degenerative changes, as described above. Straightening of the normal cervical lordosis. Electronically Signed: Mahad Felder MD at 11:03 EDT , Brain CT 02/13/23 09:51 IMPRESSION: Chronic involutional changes of the brain. Small scalp hematoma overlying the left occipital bone superiorly. Electronically Signed: Mahad Felder MD at 11:01 EDT , Assessment & Plan Assessment/Plan (1) Hyponatremia: PLAN: 1. Hyponatremia secondary to chronic alcohol abuse ? He does admit to drinking 6-8 beers a day need to take an extra amitriptyline to help him sleep last night ? He does have chronic hyponatremia though this is acutely low to 114 ? Continue with IV fluids ? We will repeat BMP in a few hours to monitor response to fluids ? He vehemently refused detox ? We will place him on CIWA protocol with Ativan DVT: Ambulation 75 minutes was spent on direct patient care, including documentation as well as chart review and collaboration with colleagues Charges/Coding Visit Charges Inpatient E&M: 08226 Init Hosp L3
[2023-02-13 17:21] LABS: Anion Gap 9 (5-15); BUN 4 mg/dL (7-18); BUN/Creat Ratio 5.1 RATIO (10-20); Calcium,Total 8.1 mg/dL (8.5-10.1); Chloride 82 mmol/L (98-107); Creatinine, Serum 0.78 mg/dL (0.70-1.30); EST Glomerular Filtration Rate 110 mL/min (>60); Est Glom Filt Rate - Afr Amer 134 mL/min (>60); Estimated Creatinine Clearance 103.58 ml/min; Glucose 136 mg/dL (74-106); Potassium 3.3 mmol/L (3.5-5.1); Sodium Level 117 mmol/L (136-145)
[2023-02-13 18:00] VITALS: BP 144/82; PULSE 89; RESP 18; TEMP 36.7; O2SAT 99
[2023-02-13 19:58] VITALS: BP 155/86; PULSE 90; RESP 18; TEMP 37.4; O2SAT 100
[2023-02-13] MEDS: Amitriptyline 100 MG Tablet 150 MG PO (22:43)
[2023-02-14 03:10] VITALS: BP 149/71; PULSE 86; RESP 16; TEMP 37.2; O2SAT 98
[2023-02-14] MEDS: 0.9% Normal Saline (1000mL) 1,000 ML 250 ML IV ×2 (03:10→07:36)
[2023-02-14] MEDS: Ibuprofen 400 MG Tablet PO (05:25)
[2023-02-14 08:32] LABS: Absolute Lymphocyte Count 0.51 X10^3/uL (0.83-4.51); Absolute Neutrophil Count 1.8 X10^3/uL (2.0-7.7); Basophil# 0.01 X10^3/uL; Basophil% 0.4 % (0-1); Eosinophil# 0.01 X10^3/uL; Eosinophils% 0.4 % (0-5); Hematocrit 29.7 % (40-54); Hemoglobin 10.5 g/dL (13.0-16.5); Lymphocyte # 0.51 X10^3/ul (0.83-4.51); Lymphocyte % 18.9 % (19-41); Mean Corp Hgb Conc 35.4 g/dL (32-36); Mean Corpuscular Hgb 32.6 pg (27.0-32.0); Mean Corpuscular Volume 92.2 fL (80-94); Mean Platelet Vol. 9.1 fl (6.2-12.0); Monocyte# 0.39 X10^3/uL; Monocyte% 14.4 % (0-10); NRBC Flagged by Analyzer 0 % (0-5); Neutrophil # 1.75 X10^3/uL (2.7-7.7); Neutrophil % 64.8 % (47-70); POSITIVE DIFFERENTIAL YES; Platelet Count 147 K/mm3 (150-450); RBC Distribution Width CV 12.8 % (11.6-14.6); RBC Distribution Width SD 42.4 fl (35.1-43.9); Red Blood Count 3.22 M/mm3 (4.6-6.2); White Blood Count 2.7 K/mm3 (4.4-11.0)
[2023-02-14 08:35] LABS: Differential Indicated SCAN CRITERIA MET
[2023-02-14 08:40] VITALS: BP 116/63; PULSE 80; RESP 18; TEMP 37; O2SAT 97
[2023-02-14 09:31] LABS: Anion Gap 6 (5-15); BUN 6 mg/dL (7-18); BUN/Creat Ratio 9.2 RATIO (10-20); Calcium,Total 7.8 mg/dL (8.5-10.1); Chloride 94 mmol/L (98-107); Creatinine, Serum 0.65 mg/dL (0.70-1.30); EST Glomerular Filtration Rate 137 mL/min (>60); Est Glom Filt Rate - Afr Amer 166 mL/min (>60); Estimated Creatinine Clearance 124.29 ml/min; Glucose 99 mg/dL (74-106); Potassium 3.6 mmol/L (3.5-5.1); Sodium Level 123 mmol/L (136-145)
--- NOTE | 2023-02-14 10:24 | CASEMGMT ---
Social Work SW met w/pt in regard to mental health and alcohol abuse. Pt states he drinks daily, has no interest in stopping at this time. SW spoke w/pt about mental health. [facility]. He is open to a list of local providers. Pt informed SW his girlfriend in July. SW offered support to pt. Pt denies any thoughts at this time of wanting to harm himself. SW did provide to pt a list of local mental health agencies. SW highlighted both [facility] and [facility] as [facility] only [facility]. SW did inquire if he would need any additional resources given he just has [facility]. Pt states no, he states he is only on one medication, does not need any resources. SW remains available should any additional social service assist be needed. OJNATHAN Trejo
--- NOTE | 2023-02-14 11:06 | DCINST_ITS ---
Discharge Instructions Diet Discharge Diet: No restrictions Activity Discharge Activity: Return to Normal Activity Dressing / Incision Call your doctor if you observe: Fever of 101 or Higher, Shortness of breath, Dizziness, Fainting spells, Swelling in the ankles, Chest pain and Increased palpitations (irregular heartbeat) Follow Up Care Test Results: Test results from this visit will be discussed in further detail at your follow- up appointment, if applicable. Discharge Plan Admission Admit Date/Time: 02/13/23 11:22 Attending Provider: Puma Xavier [facility] Care Provider: [facility] Discharge Orders/Prescriptions Prescriptions: Continued multivitamin [Daily Multi-Vitamin] Tablet 1 tab PO DAILY amitriptyline 150 mg tablet 150 mg PO QHS Referrals / Follow Up: [facility] [Primary Care Provider] - Disposition Disposition (needs filled in before D/C Order can be placed): Home, Self Care
[2023-02-14 11:15] VITALS: BP 145/99; PULSE 83; RESP 18; TEMP 36.9; O2SAT 100
--- NOTE | 2023-02-14 13:19 | PCM.DC.SUM ---
Providers Date of Admission: 02/13/23 Primary Care Physician: [facility] Reason For Visit: BRODERICK GENTILE Diagnosis Discharge Diagnosis (1) Hyponatremia: Status: Acute Code(s): E87.1 - Hypo-osmolality and hyponatremia Medications at Discharge Home Medications amitriptyline 150 mg tablet 150 mg PO QHS 02/13/23 multivitamin (Daily Multi-Vitamin tablet) 1 tab PO DAILY 02/13/23 Hospital Course Operations None Procedures None Summary of Care Provided Minutes Spent on Discharge: 36 Hospital Course: Per HPI: MARCIAL VILLASENOR, is a 52 M who presents to the hospital after a fall on his way to work. He does drink excessively and this morning on admission to the ER he had a blood alcohol of 180. He says that on occasion he does get blackout drunk, he drinks about 6-8 beers a day and he states that his last drink was at 9 PM last night which cannot happen given his blood alcohol level of 180 this morning so his last drink was likely at 9 AM. He says that he went through detox 6 years ago and he does not want to go through that again. I offered him our version of detox here and he does not want to quit drinking I explained to him that it is his drinking is causing all of his problems and he stated that he was okay with continuing to drink. He was admitted to the hospital secondary to hyponatremia at 114, he is chronically hyponatremic secondary to his drinking but he is normally around 123-125 and today he was 114. Hospital Course: 1. Hyponatremia secondary to chronic alcohol abuse?52-year-old male presented to the hospital after a fall while drunk. He was on his way to work and tripped over a curb. CT of the head was unremarkable and did not demonstrate a bleed but he does have multiple abrasions from the fall. His blood alcohol level was 180. I discussed with him whether he wanted to proceed with alcohol detox he refused. His hyponatremia is chronic generally in the 123 range however to on admission he was 114. He was started on IV fluids and today on the day of discharge improved to 123 which is his baseline. He did not want to stay any longer, discussed with him the appropriateness of rehab to try to quit his drinking as this is likely can be a chronic problem however he felt that he had to go home to take care of his dog. He expressed understanding of the risks and benefits of discharge and would still like to be discharged today. Physical Exam Narrative General: Alert, Oriented x3, Cooperative, No apparent distress HEENT: Atraumatic, PERRLA, EOMI, Normocephalic Oral: Moist Mucosa Neck: Supple, No JVD Lungs: Diminished, Normal air movement, No rhonchi, No wheeze, No rales Cardiovascular: Regular rate, Regular Rhythm, Normal S1, Normal S2, No murmurs Abdomen: Soft, Non Tender, Non-Distended, No Hepato-splenomegaly Extremities: No edema, Capillary Refill Less than 3 Seconds Skin: Multiple abrasions, none show signs of infection Musculoskeletal: No Tenderness to Palpation of Joints or Extremities Neurological: Cranial nerves II-XII grossly intact, Motor Exam 5/5 strength throughout, Sensory exam intact to light touch and pain Psych/Mental Status: Flat Weight / BMI Weight Weight: 179 lb 14.355 oz Body Mass Index (BMI) 28.1 ABG / Lab / Microbiology Data 02/14/23 08:00 02/14/23 08:00 Laboratory: Laboratory Results - last 24 hr 02/13/23 16:43: Sodium 117 L*, Potassium 3.3 L, Chloride 82 L, Carbon Dioxide 26.0, Anion Gap 9, BUN 4 L, Creatinine 0.78, Estim Creat Clear Calc 103.58, Est GFR (MDRD) Af Amer 134, Est GFR (MDRD) Non-Af 110, BUN/Creatinine Ratio 5.1 L, Glucose 136 H, Calcium 8.1 L 02/14/23 08:00: WBC 2.7 L, RBC 3.22 L, Hgb 10.5 L, Hct 29.7 L, MCV 92.2, MCH 32.6 H, MCHC 35.4, RDW Std Deviation 42.4, RDW Coeff of Gale 12.8, Plt Count 147 L, MPV 9.1, Immature Gran % (Auto) 1.100 H, Neut % (Auto) 64.8, Lymph % (Auto) 18.9 L, Dale % (Auto) 14.4 H, Eos % (Auto) 0.4, Baso % (Auto) 0.4, Absolute Neuts (auto) 1.8 L, Absolute Lymphs (auto) 0.51 L, Nucleated RBC % 0, Diff Path Review September, Sodium 123 L, Potassium 3.6, Chloride 94 L, Carbon Dioxide 23.0, Anion Gap 6, BUN 6 L, Creatinine 0.65 L, Estim Creat Clear Calc 124.29, Est GFR (MDRD) Af Amer 166, Est GFR (MDRD) Non-Af 137, BUN/Creatinine Ratio 9.2 L, Glucose 99, Calcium 7.8 L D/C Instructions Discharge Diet: No restrictions Call your doctor if you observe: Fever of 101 or Higher, Shortness of breath, Dizziness, Fainting spells, Swelling in the ankles, Chest pain and Increased palpitations (irregular heartbeat) Meaningful Use Info Meaningful Use Diagnoses (Choose all that apply): None applicable Discharge Plan Admission Admit Date/Time: 02/13/23 11:22 Attending Provider: Puma Xavier [facility] Discharge Orders/Prescriptions Prescriptions: Continued multivitamin [Daily Multi-Vitamin] Tablet 1 tab PO DAILY amitriptyline 150 mg tablet 150 mg PO QHS Referrals / Follow Up[facility] [Primary Care Provider] - Disposition Disposition (needs filled in before D/C Order can be placed): Home, Self Care Charges/Coding Visit Charges Inpatient E&M: 33080 Disch Hosp >30min
[2023-02-16 13:15] LABS: Pathologist Review Reviewed
[2023-02-16 13:19] LABS: Pathologist Review Reviewed
== END 2023-02-14 11:41 | disposition home or self-care (01) ==
LOC: ED 11:32 → MS3 12:21
PROVIDERS: Admitting Provider Family Medicine; Emergency Provider Emergency Medicine; Visit Provider Family Medicine
DX: E87.1 Hypo-osmolality and hyponatremia (principal); D70.9 Neutropenia, unspecified; F10.229 Alcohol dependence with intoxication, unspecified; W10.1XXA Fall (on)(from) sidewalk curb, initial encounter; S00.03XA Contusion of scalp, initial encounter; Y90.6 Blood alcohol level of 120-199 mg/100 ml; Z23 Encounter for immunization; S00.83XA Contusion of other part of head, initial encounter; Y93.9 Activity, unspecified; S20.219A Contusion of unspecified front wall of thorax, initial encounter; S40.011A Contusion of right shoulder, initial encounter; S16.1XXA Strain of muscle, fascia and tendon at neck level, initial encounter; Y92.9 Unspecified place or not applicable
CPT/HCPCS: 36415; 70450; 72125; 80048; 80076; 82077; 85025; 85610; 90715; 93005; 96360; 96361; 99221; 99285; J7030; A4216; G0378

== ENCOUNTER 2023-03-01 19:25 | Emergency (ER) | payer OTHER, SELFPAY ==
[2023-03-01 19:26] VITALS: BP 163/89; PULSE 79; RESP 16; TEMP 36.6; O2SAT 98; BMI 30.9
--- NOTE | 2023-03-01 20:05 | EX.ED.VIS.PS ---
HPI <FEDERICA Hastings - Last Filed: 03/01/23 20:53> HPI - Psych History of Present Illness Chief Complaint: Mental Health Narrative Narrative: Patient presenting today due to depression. He reports that he lost his girlfriend of 20 years in July and has had a very difficult time coping with her loss. He reports that he has not talked with a therapist or counselor but realizes now that he needs to talk to somebody and wants help. [facility] some [facility], but is denying any thoughts of suicide. He reports that he would never take his own life due to his son, dad, and aunts and would not want to put them through that. He does admit to alcohol use, he reports that he has had about 4 beers today and normally drinks about 6. He does have a history of PTSD. He denies any other substance use. He denies any thoughts of self-harm, homicidal thoughts, visual/auditory hallucinations. PFSH <FEDERICA Hastings - Last Filed: 03/01/23 20:53> PFS Medical History Alcohol abuse Anxiety and depression Home Medications amitriptyline 150 mg tablet 150 mg PO QHS 02/13/23 [History Last Taken 02/11/23] multivitamin (Daily Multi-Vitamin tablet) 1 tab PO DAILY 02/13/23 [History Last Taken Unknown] Allergy/AdvReac Type Severity Reaction Status Date / Time No Known Allergies Allergy Verified 03/01/23 19:25 Family History Mother Rheumatoid arthritis Father Hypertension Surgical History History of carpal tunnel surgery Social History household members: none Smoking Status: Never smoker alcohol intake: current alcohol intake frequency: 3 or more drinks per day details: Drinks usually 6-8, 12 ounces beers daily, 09/06/22 15 beers intake. substance use type: does not use ROS <FEDERICA Hastings - Last Filed: 03/01/23 20:53> ROS ED Constitutional Constitutional ED: Denies chills or fever(s) Cardiovascular Cardiovascular: Denies chest pain Respiratory/Chest Respiratory/Chest: Denies cough or dyspnea Gastrointestinal Gastrointestinal: Denies abdominal pain, nausea or vomiting Musculoskeletal Musculoskeletal: Denies arthralgias or myalgias Neurologic Neurologic: Denies weakness Psychiatric Psychiatric: Reports depression; Denies hallucinations, homicidal ideation, suicidal ideation or suicidal thoughts EXAM <FEDERICA Hastings - Last Filed: 03/01/23 20:53> Physical Exam Const Vital Signs: 03/01/23 19:26 Temperature 97.9 F Temperature Source Temporal Pulse Rate 79 Respiratory Rate 16 Blood Pressure 163/89 H Blood Pressure Mean 113 Pulse Ox 98 Oxygen Delivery Method Room Air Positive well nourished, well developed and no apparent distress General Appearance ED: well developed HEENT Reports normocephalic and head/scalp atraumatic Mouth ED: Yes moist mucous membranes normal Eyes PERRL and EOMs intact bilaterally Neck full ROM and supple Chest Wall inspection of chest normal Resp normal respiratory effort and clear to auscultation bilaterally Cardio regular rate and regular rhythm GI soft to palpation, non-tender, non-distended and no masses Back/Spine normal ROM and normal to inspection Extremity normal to inspection and full ROM Neuro oriented x3, CN's II-XII intact bilaterally, moves all extremities, no focal motor deficits and no sensory deficits noted Sensorium / Orientation: awake and alert Psych mental status grossly normal, thought process normal, cooperative, denies hallucinations, denies homicidal ideation and denies suicidal ideation Appearance: grossly normal Attitude: withdrawn Activity / Motor Behavior: avoids eye contact Insight: insight good Judgement: judgement good Skin no rashes or lesions noted and no wounds <Dr. Parish Dotson MD - Last Filed: 03/01/23 21:54> Physical Exam Const Vital Signs: 03/01/23 19:26 Temperature 97.9 F Temperature Source Temporal Pulse Rate 79 Respiratory Rate 16 Blood Pressure 163/89 H Blood Pressure Mean 113 Pulse Ox 98 Oxygen Delivery Method Room Air MDM <FEDERICA Hastings - Last Filed: 03/01/23 20:53> MDM MDM Narrative Medical decision making narrative: Patient presenting today due to depression. He he lost his girlfriend of 20 years back in July and has a hard time coping with her loss since. He has been seen here a few times with similar symptoms. [facility]ations, but to me he denies any thoughts of suicide. He reports that he would never to that, that he has a son of father and family that he would not want to leave behind. He does not have any plan of suicide and denies any thoughts of self-harm. He reports that he just needs support and would like resources and somebody to talk to. We will obtain a drug and alcohol level and have crisis come and evaluate patient. He does admit to alcohol use, he reports he has had about 4 beers today. Lab Data Attestation: I reviewed the patient's lab results. Labs: Laboratory Results - last 24 hr 03/01/23 03/01/23 20:00 20:11 Urine Opiates Screen NEGATIVE Urine Methadone Screen NEGATIVE Ur Barbiturates Screen NEGATIVE Ur Phencyclidine Scrn NEGATIVE Ur Amphetamines Screen NEGATIVE MDMA (Ecstasy) Screen NEGATIVE U Benzodiazepines Scrn NEGATIVE Urine Cocaine Screen NEGATIVE U Cannabinoids Screen NEGATIVE Ur Drug Screen Comment Ethyl Alcohol 318.0 H* <Dr. 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 I performed a substantive portion of the visit including all aspects of the following. My valdez findings include: History is patient has a longstanding history of depression and suicidal thoughts more than 6 months, since his girlfriend . He is [facility] a [facility], he is on amitriptyline, and was drinking tonight, on the phone with crisis, and he asked the police to bring him to the hospital to talk to someone. He does not have suicidal ideation or plan. He states the suicidal thoughts are not new. Exam is well-appearing in no acute distress, normal physical exam. Patient is somewhat intoxicated, but pleasant and cooperative, and insightful. Denies suicidal ideation. He is not delusional or acting on any hallucinations. Medical Decison Making alcohol and toxicology, discussed with mental health/crisis for further evaluation. Other additions or changes: Alcohol level returned over 300. As I discussed with the patient given the hour he will need to sleep the alcohol off overnight and be reevaluated in the morning, he states he would rather not and he would rather go home and follow-up with counselor at the [facility] tomorrow. He contracts verbally for safety, and is comfortable seeking a ride home which nursing will try to help him with. Discharge Plan Triage Chief Complaint: Mental Health ED Midlevel Provider: Mitra Gold ED Provider: Parish Dotson Dx/Rx/DC Orders Clinical Impression: Suicidal thoughts, Adjustment disorder, Alcohol intoxication, Depression Instructions: ED Adjustment Disorder, CONTRACT, No Harm Prescriptions: No Action multivitamin [Daily Multi-Vitamin] Tablet 1 tab PO DAILY amitriptyline 150 mg tablet 150 mg PO QHS [facility] [[facility] Provider] - As soon as possible Disposition Disposition: Home, Self Care
[2023-03-01 20:32] LABS: Amphetamine Urine VISTA NEGATIVE (<1000 ng/mL); Barbiturate Urine VISTA NEGATIVE (< 200 ng/mL); Benzodiazepine Urine VISTA NEGATIVE (< 200 ng/mL); Cocaine Urine VISTA NEGATIVE (< 300 ng/mL); Ecstacy Urine VISTA NEGATIVE (< 500 ng/mL); Methadone Urine VISTA NEGATIVE (< 300 ng/mL); PCP Urine VISTA NEGATIVE (< 25 ng/mL); THC Urine VISTA NEGATIVE (< 50 ng/mL); Vista UDS pH Range 6
[2023-03-01 23:25] VITALS: PULSE 95; O2SAT 99
--- NOTE | 2023-03-01 23:26 | ED.RN ---
PER DR. RECINOS, PATIENT IS NOT A HARM TO SELF AT THIS TIME AND IS NOT REQUIRED TO BE SEEN BY CRISIS. OKAY FOR DISCHARGE HOME LONG HE IS NOT DRIVING. PATIENT INFORMED AND STATED THAT HE DOES NOT HAVE ANY MONEY FOR A TAXI AND DOES NOT HAVE ANYONE TO CALL TO TAKE HIM HOME, HOWEVER HE WOULD BE OKAY WITH WALKING HOME. PATIENT AMBULATED AND FOUND TO BE STEADY. DR. RECINOS APPROVED THE PATIENT TO WALK HOME AT THIS TIME. DISCHARGED WITH A NO HARM CONTRACT.
== END 2023-03-01 23:31 | disposition home or self-care (01) ==
PROVIDERS: Physician Assistant; Emergency Provider Emergency Medicine; Visit Provider Emergency Medicine
DX: R45.851 Suicidal ideations (principal); F10.129 Alcohol abuse with intoxication, unspecified; F32.A Depression, unspecified
CPT/HCPCS: 80307; 82077; 99282

== ENCOUNTER 2023-03-03 13:10 | Emergency (ER) | payer OTHER, SELFPAY ==
[2023-03-03] VITALS (9 sets, daily range): BP systolic 112–152; BP diastolic 72–102; PULSE 77–89; RESP 14–23; TEMP 36.2–36.4; O2SAT 99–100; BMI 25.0
--- NOTE | 2023-03-03 14:07 | CT_ITS ---
INDICATION: trauma EXAMINATION: CT CERVICAL SPINE - CT Spine Cervical W/O Contrast Injection TECHNIQUE: Helically acquired images were obtained of the cervical spine. 2D reformatted images were reviewed. A radiation dose optimization technique was used for this scan. IV Contrast dosage and agent: None. RADIATION DOSAGE (If Supplied By Facility): CTDIvol = ( 21.98 ) mGy, DLP = ( 487.29 ) mGycm COMPARISON: Prior study dated: 02/13/2023. FINDINGS: VERTEBRAE: No fracture or traumatic subluxation. No discrete lytic or blastic abnormality. Straightening of the cervical spine. Alignment of the vertebral bodies is unremarkable. Normal craniocervical junction and cervicothoracic junction. DISCS and SPINAL CANAL: Degenerative changes mainly at the level of C4-C5 unchanged the prior examination. No critical stenosis. NECK SOFT TISSUES: No prevertebral soft tissue swelling. Atherosclerotic excretions of the carotid arteries. LUNG APICES: Clear. CT/Spine Cervical without Contras IMPRESSION: 1. No evidence of acute cervical spinal fracture or spondylolisthesis. 2. Degenerative changes unchanged.. Electronically Signed: Mart Avila MD at 14:44 EDT ,
--- NOTE | 2023-03-03 14:07 | CT_ITS ---
We are attempting to reach an attending provider to discuss findings. An addendum with communication details will be sent when the communication is complete. INDICATION: TRAUMA EXAMINATION: CT BRAIN - CT Head or Brain W/O Contrast Injection TECHNIQUE: Multiple axial images were obtained of the head without intravenous contrast. A radiation dose optimization technique was used for this scan. IV Contrast dosage and agent: None. RADIATION DOSAGE (If Supplied By Facility): CTDIvol = ( 44.99 ) mGy, DLP = ( 812.98 ) mGycm COMPARISON: Prior study dated: 02/13/2023. FINDINGS: BRAIN PARENCHYMA: Acute left frontoparietal and temporal subdural hematoma measuring up to 10 mm in maximum thickness. Effacement of the left parietal cortical sulci. Impression on the left lateral ventricle and 5 mm shifted midline to the right side. Focal areas of parenchymal contusion in the left frontal and temporal lobes. Possible subarachnoid hemorrhage around the edge of the tentorium. Posterior fossa structures are unremarkable. CSF SPACES: Prominent ventricles for the patient''s age. No hydrocephalus. Basal cisterns are patent. CALVARIUM, SKULL BASE, PARANASAL SINUSES AND MASTOID AIR CELLS: Mild mucosal thickening of the right maxillary sinus. No discrete lytic or blastic abnormalities. ORBITS: Both globes, extraocular muscles, optic nerves and retrobulbar fat appear unremarkable. CT/Brain/Head without Contrast IMPRESSION: 1. Left frontoparietal and temporal acute subdural hematoma as described above with shift in the midline to the right side. 2. Focal areas of acute parenchymal contusions in the left frontal and temporal lobes. 3. Subarachnoid hemorrhage at the edge of tentorium. 4. No evidence of acute fracture. Electronically Signed: Mart Avila MD at 14:37 EDT ,
--- NOTE | 2023-03-03 14:07 | EKG12_ITS ---
Test Reason : HEAD INJURY Blood Pressure : / mmHG Vent. Rate : 071 BPM Atrial Rate : 071 BPM P-R Int : 212 ms QRS Dur : 104 ms QT Int : 380 ms P-R-T Axes : 036 -20 056 degrees QTc Int : 412 ms Sinus rhythm with 1st degree A-V block Otherwise normal ECG Confirmed by JAG CORDOVA, LINH ([id number]), online editor TAMERA HANDY ([id number]) on 03/05/2023 2:05:58 PM Referred By: LORENA Confirmed By:LINH RM MD
--- NOTE | 2023-03-03 14:07 | RAD_ITS ---
INDICATION: fall EXAMINATION/TECHNIQUE: X-RAY - XR Chest 1 View COMPARISON: No relevant prior comparison study available FINDINGS: LINES/DEVICES: None. LUNGS: No consolidation, edema or effusion. No pneumothorax. MEDIASTINUM AND CARDIOVASCULAR STRUCTURES: Cardiac silhouette not enlarged. Central airways and mediastinal contour are unremarkable. BONES AND SOFT TISSUES: Unremarkable. RAD/Chest 1 View (Portable) IMPRESSION: No radiographic evidence of acute cardiopulmonary disease. Electronically Signed: Mart Avila MD at 14:57 EDT ,
[2023-03-03 14:15] LABS: Absolute Lymphocyte Count 0.58 X10^3/uL (0.83-4.51); Absolute Neutrophil Count 5.5 X10^3/uL (2.0-7.7); Basophil# 0.01 X10^3/uL; Basophil% 0.1 % (0-1); Eosinophil# 0.05 X10^3/uL; Eosinophils% 0.7 % (0-5); Hemoglobin 12.3 g/dL (13.0-16.5); Lymphocyte # 0.58 X10^3/ul (0.83-4.51); Lymphocyte % 7.8 % (19-41); Mean Corp Hgb Conc 37.3 g/dL (32-36); Mean Corpuscular Hgb 34.2 pg (27.0-32.0); Mean Corpuscular Volume 91.7 fL (80-94); Mean Platelet Vol. 9.1 fl (6.2-12.0); Monocyte# 1.18 X10^3/uL; Monocyte% 15.9 % (0-10); NRBC Flagged by Analyzer 0 % (0-5); Neutrophil # 5.53 X10^3/uL (2.7-7.7); Neutrophil % 74.8 % (47-70); POSITIVE DIFFERENTIAL YES; Platelet Count 243 K/mm3 (150-450); RBC Distribution Width CV 13.2 % (11.6-14.6); RBC Distribution Width SD 44.1 fl (35.1-43.9); White Blood Count 7.4 K/mm3 (4.4-11.0)
[2023-03-03 14:16] LABS: Differential Indicated SCAN CRITERIA MET
--- NOTE | 2023-03-03 14:27 | EDS_ITS ---
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 Patient was seen in the ER 2 days ago with depression on the anniversary of the loss of his significant other. Social work tried to follow- up with him today but he would not answer the door. Police were sent to his home. He was found with bruising around his eyes and blood on his hands. He is not speaking at this time and not telling us what happened. [facility] Medical History Alcohol abuse Anxiety and depression Home Medications amitriptyline 150 mg tablet 150 mg PO QHS 02/13/23 [History Last Taken 02/11/23] multivitamin (Daily Multi-Vitamin tablet) 1 tab PO DAILY 02/13/23 [History Last Taken Unknown] Allergy/AdvReac Type Severity Reaction Status Date / Time No Known Allergies Allergy Verified 03/03/23 13:14 Family History Mother Rheumatoid arthritis Father Hypertension Surgical History History of carpal tunnel surgery Social History household members: none Smoking Status: Never smoker alcohol intake: current alcohol intake frequency: 3 or more drinks per day details: Drinks usually 6-8, 12 ounces beers daily, 09/06/22 15 beers intake. substance use type: does not use ROS ROS ED Review of Systems ROS Unobtainable: due to mental condition EXAM Physical Exam Narrative Exam Narrative: Patient sitting upright in bed looking around the room. He is following most commands. He is not speaking to answer questions. Const Vital Signs: 03/03/23 13:10 03/03/23 13:59 03/03/23 14:00 Temperature 97.2 F L Temperature Source Temporal Pulse Rate 89 77 Respiratory Rate 16 14 Respiratory Effort Normal Non-Labored Respiratory Depth Normal Respiratory Pattern Normal Blood Pressure 151/90 H 141/85 H Blood Pressure Mean 110 103 Blood Pressure Source Blood Pressure Position Pulse Ox 99 100 Oxygen Delivery Method Room Air Room Air Room Air 03/03/23 14:13 03/03/23 14:30 03/03/23 14:45 Temperature 97.5 F L Temperature Source Temporal Pulse Rate 79 78 Respiratory Rate 15 14 Respiratory Effort Respiratory Depth Respiratory Pattern Blood Pressure 144/95 H 148/76 H 152/82 H Blood Pressure Mean 111 100 105 Blood Pressure Source Monitor Monitor Blood Pressure Position Supine Supine Pulse Ox 99 100 Oxygen Delivery Method Room Air Room Air 03/03/23 15:00 03/03/23 15:15 03/03/23 15:30 Temperature Temperature Source Pulse Rate Respiratory Rate 23 H Respiratory Effort Respiratory Depth Respiratory Pattern Blood Pressure 139/80 H 138/72 H 133/75 H Blood Pressure Mean 99 94 94 Blood Pressure Source Monitor Monitor Blood Pressure Position Supine Pulse Ox Oxygen Delivery Method 03/03/23 15:45 Temperature Temperature Source Pulse Rate Respiratory Rate Respiratory Effort Respiratory Depth Respiratory Pattern Blood Pressure 112/102 H Blood Pressure Mean 105 Blood Pressure Source Blood Pressure Position Pulse Ox Oxygen Delivery Method Positive well nourished and well developed General Appearance ED: well developed HEENT HEENT Narrative: Dark appearing ecchymosis over the upper eyelids bilaterally. Neck Neck Narrative: No C-spine tenderness. No step-off. Chest Wall inspection of chest normal and palpation of chest normal Resp normal respiratory effort and clear to auscultation bilaterally Cardio regular rate and regular rhythm GI non-tender Palpation: soft Extremity Extremity Narrative: Old appearing ecchymosis noted on the upper right humerus. Good range of motion. Superficial laceration noted to the thumb of the left hand. No abrasions or ecchymoses noted to the lower extremities. MDM MDM MDM Narrative Medical decision making narrative: Patient sent to CT scan for CT of the head and C-spine. Labwork obtained to evaluate for leukocytosis, anemia, and electrolyte derangement. Lab Data Labs: Laboratory Results - last 24 hr 03/03/23 03/03/23 14:05 17:06 WBC 7.4 RBC 3.60 L Hgb 12.3 L Hct 33.0 L MCV 91.7 MCH 34.2 H MCHC 37.3 H RDW Std Deviation 44.1 H RDW Coeff of Gale 13.2 Plt Count 243 MPV 9.1 Immature Gran % (Auto) 0.700 Neut % (Auto) 74.8 H Lymph % (Auto) 7.8 L Randall % (Auto) 15.9 H Eos % (Auto) 0.7 Baso % (Auto) 0.1 Absolute Neuts (auto) 5.5 Absolute Lymphs (auto) 0.58 L Nucleated RBC % 0 Differential Comment SCANNED Sodium 114 L* Potassium 3.4 L Chloride 76 L Carbon Dioxide 26.0 Anion Gap 12 BUN 17 Creatinine 1.47 H Estim Creat Clear Calc 54.96 Est GFR (MDRD) Af Amer 65 Est GFR (MDRD) Non-Af 53 L BUN/Creatinine Ratio 11.6 Glucose 112 H Calcium 9.5 Total Bilirubin 1.80 H Direct Bilirubin 0.58 H AST 29 ALT 54 Alkaline Phosphatase 76 Total Protein 9.6 H Albumin 4.4 Globulin 5.2 H Urine Color Elisabet Urine Clarity Clear Urine pH 5.0 Ur Specific [place] 1.025 Urine Protein 30 H Urine Glucose (UA) Normal Urine Ketones 5 H Urine Occult Blood 25 H Urine Nitrite Negative Urine Bilirubin 1 H Urine Urobilinogen 1 H Ur Leukocyte Esterase 25 H Urine RBC 0 SEEN Urine WBC 0-5 SEEN Ur Squamous Epith Cells 0 SEEN Calcium Oxalate Crystal 1+ Urine Bacteria 0 SEEN Urine Mucus 0 SEEN Urine Opiates Screen POSITIVE H Urine Methadone Screen NEGATIVE Ur Barbiturates Screen NEGATIVE Ur Phencyclidine Scrn NEGATIVE Ur Amphetamines Screen NEGATIVE MDMA (Ecstasy) Screen POSITIVE H U Benzodiazepines Scrn NEGATIVE Urine Cocaine Screen NEGATIVE U Cannabinoids Screen POSITIVE H Ur Drug Screen Comment Ethyl Alcohol < 3.0 Radiography Diagnostic Testing: Clinical Impression(s) from Imaging Studies Brain CT 03/03/23 14:07 IMPRESSION: 1. Left frontoparietal and temporal acute subdural hematoma as described above with shift in the midline to the right side. 2. Focal areas of acute parenchymal contusions in the left frontal and temporal lobes. 3. Subarachnoid hemorrhage at the edge of tentorium. 4. No evidence of acute fracture. Electronically Signed: Mart Avila MD at 14:37 EDT , ADDENDUM: 03/03/23 4488 IMPRESSION: 1. Left frontoparietal and temporal acute subdural hematoma as described above with shift in the midline to the right side. 2. Focal areas of acute parenchymal contusions in the left frontal and temporal lobes. 3. Subarachnoid hemorrhage at the edge of tentorium. 4. No evidence of acute fracture. N.B. : The above Results were Read Back by Mart Avila MD to Myla Vidal MD, and understanding confirmed on 03/03/2023 14:41:32 (ET). Electronically Signed: Mart Avila MD at 14:37 EDT , Cervical Spine CT 03/03/23 14:07 IMPRESSION: 1. No evidence of acute cervical spinal fracture or spondylolisthesis. 2. Degenerative changes unchanged.. Electronically Signed: Mart Avila MD at 14:44 EDT , Chest X-Ray 03/03/23 14:07 IMPRESSION: No radiographic evidence of acute cardiopulmonary disease. Electronically Signed: Mart Avila MD at 14:57 EDT , EKG Initial EKG: Attestation: I personally reviewed and interpreted this EKG as follows: Interpretation: Sinus Rhythm (Sinus at 71 with no acute ischemia.) Treatment and Re-Evaluation :: I received a phone call from CT that patient had evidence of an intracranial bleed. Per my interpretation there is a left-sided subdural hemorrhage measuring 7 mm in the thickest area. There is approximately 5 mm shift noted. Portable chest x-ray per my interpretation reveals no acute abnormalities. I do not see any obvious abnormalities on the CT scan of the C-spine. On repeat evaluation patient resting comfortably. He will answer okay to most of my questions. We will contact [facility] for trauma transfer. CBC has returned and reveals a normal white count at 7.4 with a hemoglobin of 12.3. I spoke with Dr. Jo at [facility] who is excepted the patient in transfer. She did request we give the patient IV Keppra. We are calling for transfer at this time. Prior to patient transfer he did require placement of soft restraints as he tried to pull out his IV lines and was not able to be redirected. Critical Care Time Critical Care Time: Yes Critical care time (excluding procedures): 30-74 minutes (40 minutes), Discussing w/Patient &/or Family/Chyron Operator, Discussing w/Consultants, Arranging Admission or Transfer and Performing Direct Patient Care at Bedside Discharge Plan Triage Chief Complaint: Head Injury Other Complaint: Mental Health ED Provider: Myla Vidal Dx/Rx/DC Orders Clinical Impression: Subdural hemorrhage Prescriptions: No Action multivitamin [Daily Multi-Vitamin] Tablet 1 tab PO DAILY amitriptyline 150 mg tablet 150 mg PO QHS [facility] [[facility] Provider] - Disposition Disposition: Acute Care Hospital Discharge Location: [facility] Discharge Date/Time: 03/03/23 15:57
[2023-03-03] MEDS: 0.9% Normal Saline (1000mL) 1,000 ML 150 ML IV (14:32)
--- NOTE | 2023-03-03 14:33 | ED.RN ---
ATTEMPTED TO CALL [facility]IAL WORK, NO ANSWER UNABLE TO LEAVE A VOICE MESSAGE.
[2023-03-03 14:41] LABS: Differential Comment SCANNED
[2023-03-03] MEDS: levETIRAcetam IV 1,000 MG/100 ML BAG 400 MG IV (14:50)
[2023-03-03] MEDS: hydrALAZINE 20 MG/ML Vial 10 MG IV (14:50)
--- NOTE | 2023-03-03 14:58 | CM.ED ---
[facility] called [facility] [place], , as [facility] had called [facility] regarding patient. Pt had called [place] crisis line yesterday. [facility] followed up today and had law enforcement bring patient to the ED for mental health concerns. Pt has blood and bruising to face. Medical testing indicated brain bleed and patient to be shipped to [facility]. [place] [facility] SW notified and psychiatric provider to be notified by [place] as well. SW left call back information if further concerns arise. Carmita Bellamy COMMERCIAL REAL ESTATE ASSISTANT, ELECTROMEDICAL SERVICE ENGINEER
[2023-03-03 15:09] LABS: AST(SGOT) 29 U/L (15-37); Alanine Aminotransfer ALT/SGPT 54 U/L (16-61); Albumin, Serum 4.4 g/dL (3.2-5.0); Alkaline Phosphatase 76 U/L (45-117); Anion Gap 12 (5-15); BUN 17 mg/dL (7-18); BUN/Creat Ratio 11.6 RATIO (10-20); Bilirubin, Direct 0.58 mg/dL (0.00-0.30); Calcium,Total 9.5 mg/dL (8.5-10.1); Chloride 76 mmol/L (98-107); Creatinine, Serum 1.47 mg/dL (0.70-1.30); EST Glomerular Filtration Rate 53 mL/min (>60); Est Glom Filt Rate - Afr Amer 65 mL/min (>60); Estimated Creatinine Clearance 54.96 ml/min; Globulin 5.2 g/dL (2.2-4.2); Glucose 112 mg/dL (74-106); Potassium 3.4 mmol/L (3.5-5.1); Protein, Total 9.6 g/dL (6.4-8.2); Sodium Level 114 mmol/L (136-145)
[2023-03-03 15:24] LABS: Alcohol, Blood (Medical)-Serum < 3.0 mg/dL
--- NOTE | 2023-03-03 15:26 | ED.RN ---
pt. placed in soft wrist restraints at 1525 to stop pt. from pulling at lines and wires.
[2023-03-03 17:15] LABS: Bacteria 0 SEEN /hpf (None Seen); Mucous, Urine 0 SEEN /hpf (<or=2+); Red Blood Cells-Urine 0 SEEN /hpf (0-5); Squamous Epithelial Cells - UA 0 SEEN /hpf (0-5)
[2023-03-03 17:24] LABS: Color, Urine Amber (Yellow); Glucose, Dipstick Normal (Normal); Ketone-Dipstick 5 mg/dl (Negative); Leukocyte Esterase-Dipstick 25 /ul (Negative); Nitrite-Dipstick Negative (Negative); Occult Blood-Urine 25 /ul (Negative); Protein-Dipstick 30 mg/dl (Negative); Specific Gravity, Urine 1.025 (1.002-1.030); Urine Bilirubin Dipstick 1 mg/dL (Negative); Urine Clarity Clear (Clear); Urine Urobilinogen 1 mg/dl (Normal)
[2023-03-03 18:13] LABS: Calcium Oxalate Crystals Ur 1+ /hpf (<or=2+); White Blood Cells 0-5 SEEN /hpf (0-5)
[2023-03-03 18:23] LABS: Amphetamine Urine VISTA NEGATIVE (<1000 ng/mL); Barbiturate Urine VISTA NEGATIVE (< 200 ng/mL); Benzodiazepine Urine VISTA NEGATIVE (< 200 ng/mL); Cocaine Urine VISTA NEGATIVE (< 300 ng/mL); Ecstacy Urine VISTA POSITIVE (< 500 ng/mL); Methadone Urine VISTA NEGATIVE (< 300 ng/mL); PCP Urine VISTA NEGATIVE (< 25 ng/mL); THC Urine VISTA POSITIVE (< 50 ng/mL); Vista UDS pH Range 5
== END 2023-03-03 15:57 | disposition short-term general hospital (02) ==
PROVIDERS: Emergency Provider Emergency Medicine; Visit Provider Emergency Medicine
DX: S06.5XAA Traumatic subdural hemorrhage with loss of consciousness status unknown, initial encounter (principal); S05.11XA Contusion of eyeball and orbital tissues, right eye, initial encounter; S05.12XA Contusion of eyeball and orbital tissues, left eye, initial encounter; X58.XXXA Exposure to other specified factors, initial encounter; F32.A Depression, unspecified; F41.9 Anxiety disorder, unspecified
CPT/HCPCS: 70450; 71045; 72125; 80048; 80076; 80307; 81001; 82077; 85025; 93005; 96365; 99285; J7030; A4216

== ENCOUNTER 2023-10-28 21:18 | Emergency (ER) | payer OTHER, SELFPAY ==
[2023-10-28 21:22] VITALS: BP 137/73; PULSE 76; RESP 16; TEMP 36.4; O2SAT 97; BMI 31.5
--- NOTE | 2023-10-28 21:24 | CT_ITS ---
We are attempting to reach an attending provider to discuss findings. An addendum with communication details will be sent when the communication is complete. EXAMINATION : Head CT w/out contrast HISTORY : STROKE COMPARISON : 03/03/2023. TECHNIQUE : Multiple contiguous axial images were obtained from the skull base to the vertex without intravenous contrast. A radiation dose optimization technique was used for this scan. FINDINGS : There is an acute on chronic subdural collection in the left frontoparietal convexity measuring 1.4 cm in thickness. There is a 0.6 mm [id number] midline shift. There is an arachnoid cyst in the left posterior fossa. There is normal oconnell-white differentiation, without CT evidence of acute ischemia or infarct. Left frontoparietal craniectomy. The orbits are unremarkable. The paranasal sinuses are clear. The mastoid air cells are well-aerated. Large chronic appearing left frontal parietal scalp hematoma. CT/STROKE Brain/Head without Cont IMPRESSION: 1.4 cm thick acute on chronic left subdural hematoma with 6 mm [id number] midline shift. Large chronic appearing left frontal parietal scalp hematoma. Electronically Signed: Ezekiel Mayfield MD at 21:55 EDT ,
--- NOTE | 2023-10-28 21:24 | EKG12_ITS ---
Test Reason : STROKE Blood Pressure : / mmHG Vent. Rate : 071 BPM Atrial Rate : 071 BPM P-R Int : 224 ms QRS Dur : 100 ms QT Int : 394 ms P-R-T Axes : 055 -14 044 degrees QTc Int : 428 ms Sinus rhythm with 1st degree A-V block Otherwise normal ECG When compared with ECG of 03-MAR-2023 14:42, No significant change was found Confirmed by JAG CORDOVA, LINH ([id number]), scientific publications editor OSCAR JAMES ([id number]) on 11/04/2023 10:05:00 AM Referred By: SHIVANI Confirmed By:LINH RM MD
--- NOTE | 2023-10-28 21:25 | CT_ITS ---
We are attempting to reach an attending provider to discuss findings. An addendum with communication details will be sent when the communication is complete. STUDY: CTA HEAD AND NECK WITH CONTRAST REASON FOR EXAM: Male, 53 years old. STROKE RADIATION DOSAGE (If Supplied By Facility): CTDIvol = ( 22.28 ) mGy, DLP = ( 790.85 ) mGycm TECHNIQUE: CT angiography was performed with a multi-detector CT scanner. Data acquisition was obtained from the skull base through the vertex following intravenous administration of IV 100mL Isovue-370. MIP images were reconstructed from the axial data set. Post-processing of the angiographic images was performed, with multiplanar reformation and 3D reconstruction. Individualized dose optimization techniques were used for this CT. COMPARISON: No relevant priors. FINDINGS: Normal bilateral petrous carotid arteries. Normal right cavernous carotid artery with a normal supraclinoid bifurcation. Normal left cavernous carotid artery with a normal supraclinoid bifurcation. Normal right A1 segments of the anterior cerebral artery. Normal left A1 segments of the anterior cerebral artery. Normal intact anterior communicating artery (ACOM). Normal bilateral A2 segments of the anterior cerebral arteries. Normal right M1 and M2 segments of the middle cerebral arteries, with a normal M1 bifurcation. Normal left M1 and M2 segments of the middle cerebral arteries, with a normal M1 bifurcation. There is non-visualization of the right posterior communicating artery (PCOM). Normal left posterior communicating artery (PCOM). Normal bilateral vertebral arteries. Normal basilar artery with a normal basilar bifurcation. The visualized bilateral superior cerebellar (SCA) arteries are normal. Normal bilateral P1, P2 and visualized P3 segments of the posterior cerebral arteries. There is no demonstrated aneurysm of the [place]. There is left craniectomy and reconstruction. There is subdural fluid collection with increased and decreased density regions consistent with recent and chronic components. There is low density subcutaneous fluid collection. There is subfalcine herniation with shift of midline structures to the right of 0.6 cm. AORTIC ARCH: Normal visualized aortic arch. Normal origins of the brachiocephalic, left common carotid, and left subclavian arteries. RIGHT CAROTID ARTERIES: Normal right common carotid artery (CCA). There is mild atherosclerotic plaque formation with minimal narrowing of the right carotid bulb. Normal origin of the right internal carotid (ICA) artery without a hemodynamically significant stenosis. Normal visualized cervical portion of the right internal carotid artery. Normal origin of the right external carotid artery (ECA). LEFT CAROTID ARTERIES: Normal left common carotid artery (CCA). There is mild atherosclerotic plaque formation with minimal narrowing of the left carotid bulb. Normal origin of the left internal carotid (ICA) artery without a hemodynamically significant stenosis. Normal visualized cervical portion of the left internal carotid artery. Normal origin of the left external carotid artery (ECA). VERTEBRAL ARTERIES: Normal bilateral vertebral arteries. CT/STROKE CTA Head AND Neck W/Con IMPRESSION: No intracranial aneurysm or large vessel occlusion. No internal carotid artery stenosis. Left subdural hematoma with recent and chronic components. Postoperative change. Electronically Signed: Parish Villegas MD at 22:09 EDT ,
[2023-10-28 21:36] VITALS: BMI 31.5
[2023-10-28 21:38] LABS: Absolute Lymphocyte Count 0.96 X10^3/uL (0.83-4.51); Absolute Neutrophil Count 8.1 X10^3/uL (2.0-7.7); Basophil# 0.03 X10^3/uL; Basophil% 0.3 % (0-1); Eosinophil# 0.02 X10^3/uL; Eosinophils% 0.2 % (0-5); Hematocrit 30.9 % (40-54); Hemoglobin 11.3 g/dL (13.0-16.5); Lymphocyte # 0.96 X10^3/ul (0.83-4.51); Lymphocyte % 9.4 % (19-41); Mean Corp Hgb Conc 36.6 g/dL (32-36); Mean Corpuscular Hgb 30.1 pg (27.0-32.0); Mean Corpuscular Volume 82.2 fL (80-94); Mean Platelet Vol. 8.8 fl (6.2-12.0); Monocyte# 1.05 X10^3/uL; Monocyte% 10.3 % (0-10); NRBC Flagged by Analyzer 0 % (0-5); Neutrophil # 8.08 X10^3/uL (2.7-7.7); Neutrophil % 79.3 % (47-70); Platelet Count 272 K/mm3 (150-450); RBC Distribution Width CV 12.6 % (11.6-14.6); RBC Distribution Width SD 38.3 fl (35.1-43.9); Red Blood Count 3.76 M/mm3 (4.6-6.2); White Blood Count 10.2 K/mm3 (4.4-11.0)
[2023-10-28 21:44] LABS: International Normalized Ratio 1.1; Prothrombin Time (Protime)PT. 14.2 SECONDS (11.7-14.9)
[2023-10-28 21:45] LABS: Partial Thromboplast Time 28.8 Seconds (24.1-36.2)
[2023-10-28] MEDS: LORazepam 2 MG/ML Syringe IV (21:45)
[2023-10-28 21:52] LABS: Anion Gap 11 (5-15); BUN 5 mg/dL (7-18); BUN/Creat Ratio 5.1 RATIO (10-20); Calcium,Total 9.4 mg/dL (8.5-10.1); Chloride 87 mmol/L (98-107); Creatinine, Serum 0.98 mg/dL (0.70-1.30); EST Glomerular Filtration Rate 85 mL/min (>60); Est Glom Filt Rate - Afr Amer 103 mL/min (>60); Estimated Creatinine Clearance 93.98 ml/min; Glucose 102 mg/dL (74-106); Potassium 4.1 mmol/L (3.5-5.1); Sodium Level 120 mmol/L (136-145); Troponin-I HS 90 pg/mL (3.0-78.0)
--- NOTE | 2023-10-28 21:52 | ED.RN ---
PT STARTED WITH SEIZURE ACTIVITY PRIOR TO TAKING TO CT SCAN, VERBAL ORDER FROM MD FOR ATIVAN 2MG ADMIN IV. PT RETURNS FROM CT SCAN WITH EYES CLOSED, OPENS BRIEFLY TO VOICE.
[2023-10-28 21:54] VITALS: BP 127/68; PULSE 73; RESP 14; O2SAT 99
--- NOTE | 2023-10-28 21:56 | ED.RN ---
PTS FATHER UPDATED THAT HE HAD FALLEN AT THE PRISON AND HAD SEIZURE. HE HAS RIGHT SIDE WEAKNESS AT THIS TIME. PTS FATHER JHOANA STATES HIS SON HAS POA. NO FURTHER QUESTIONS
[2023-10-28 21:57] LABS: Bedside Glucose 102 mg/dL (74-106)
--- NOTE | 2023-10-28 22:01 | ED.RN ---
PTS FATHER JHOANA HAS BEEN UPDATED ON PATIENTS STATUS AND WILL BE TRANSPORTED TO [facility]. JHOANA STATES HE HAS TRIED TO CALL HIS SON BUT HAS NOT GOTTEN AN ANSWER AT THIS TIME
--- NOTE | 2023-10-28 22:04 | EDS_ITS ---
HPI History of Present Illness Chief Complaint: Seizure Informant: EMS and SNF Onset/Context/Timing Onset: Today Context: Sudden Onset Quality and Location: Positive for Right Arm Weakness and Right Leg Weakness Narrative Narrative: Patient presents with seizure and possible stroke that was noticed today. Patient was last seen at approximately 6 PM tonight and was acting normally at that time. Patient was found on the floor having a seizure at approximately 8:30 PM tonight. Patient was then transferred to the emergency department. Patient was found to have right-sided deficit and difficulty speaking. Patient appeared to understand commands but was unable to speak and provide any information. Prior similar symptoms: Yes PFSH [facility] Medical History (Updated 10/28/23 @ 22:[address] Josh Blankenship, DO) Dysphagia Aphasia Subarachnoid hemorrhage Traumatic brain injury Alcohol abuse Anxiety and depression Home Medications ?Medication ?Instructions ?Recorded ?Last Taken ?Type amitriptyline 150 mg tablet 150 mg PO QHS 02/13/23 02/11/23 History multivitamin (Daily Multi-Vitamin 1 tab PO DAILY 02/13/23 Unknown History tablet) Allergy/AdvReac Type Severity Reaction Status Date / Time Penicillins Allergy PT UNSURE Verified 10/28/23 21:41 OF REACTION Family History Mother Rheumatoid arthritis Father Hypertension Surgical History (Updated 10/28/23 @ 22:[address] Josh Blankenship, DO) Hx of brain surgery History of carpal tunnel surgery Social History household members: none Smoking Status: Never smoker alcohol intake: current alcohol intake frequency: 3 or more drinks per day details: Drinks usually 6-8, 12 ounces beers daily, 09/06/22 15 beers intake. substance use type: does not use ROS ROS ED Review of Systems ROS Unobtainable: due to encephalopathy and due to mental status EXAM Physical Exam Const Vital Signs: 10/28/23 21:22 10/28/23 21:54 10/28/23 22:14 Temperature 97.6 F L Temperature Source Temporal Pulse Rate 76 73 Respiratory Rate 16 14 Blood Pressure 137/73 H 127/68 H Blood Pressure Mean 94 87 Pulse Ox 97 99 Oxygen Delivery Method Room Air Room Air Room Air 10/28/23 22:14 10/28/23 22:18 Temperature 96.8 F L Temperature Source Pulse Rate 68 69 Respiratory Rate 14 16 Blood Pressure 122/71 H 122/71 H Blood Pressure Mean 88 88 Pulse Ox 98 100 Oxygen Delivery Method Room Air Positive well nourished and well developed General Appearance ED: well developed and NAD HEENT Reports moist mucous membranes Neck supple and no JVD Resp normal respiratory effort and clear to auscultation bilaterally Cardio Rate: regular rate Rhythm: regular rhythm GI soft to palpation and non-distended Extremity normal to inspection Neuro Neuro Narrative: Patient is aphasic. Patient has right upper extremity weakness where he is unable to hold his arm off of the bed. Patient also has right lower extremity weakness where he is unable to lift his leg off of the bed. Strength is 5/5 in the left upper and lower extremities. Sensorium / Orientation: alert Skin no wounds Skin Narrative: There is a healing incision along the scalp. NIHSS NIHSS Initial: 1a Level of Consciousness: 1 1b LOC Questions (Score 2 if aphasic/stupor): 2 2 Best Gaze (If aphasic, use reflexive mvmts.): 0 3 Visual: 0 4 Facial Palsy: 2 5 Motor Arm Right (UN = amputation/fusion): 3 5 Motor Arm Left: 0 6 Motor Leg Right: 3 6 Motor Leg Left: 0 8 Sensory (Aphasia/stupor=0 or 1, coma=2): 1 9 Best Language: 2 10 Dysarthria (mute, coma=2, intubated=UN): 2 Total Score: 16 MDM MDM MDM Narrative Medical decision making narrative: Differential diagnosis includes stroke, intracranial bleeding, electrolyte abnormality, Dev's paralysis, seizure, cardiac dysrhythmia, and cardiac ischemia. Stroke alert was called. CT scan of the brain will be obtained to assess for intracranial bleeding and stroke. CTA of the head and neck will be obtained to assess for large vessel occlusion and carotid stenosis and vertebral stenosis. Chest x-ray will be obtained to assess for pneumonia and pneumothorax. CBC will be obtained to assess for leukocytosis and anemia. Basic metabolic profile will be obtained to assess for electrolyte abnormality and renal function. PT with INR and PTT will be obtained to assess for coagulopathy. High-sensitivity troponin will be obtained to assess for cardiac ischemia. Lab Data Attestation: I reviewed the patient's lab results. Lab results narrative: CBC was reviewed. There is a mild anemia with a hemoglobin of 11.3 and hematocrit of 30.9. Basic metabolic profile was reviewed and showed a hyponatremia of 120 and a chloride of 87. High-sensitivity troponin was reviewed and was slightly elevated at 90. Labs: Laboratory Results - last 24 hr 10/28/23 10/28/23 21:27 21:28 WBC 10.2 RBC 3.76 L Hgb 11.3 L Hct 30.9 L MCV 82.2 MCH 30.1 MCHC 36.6 H RDW Std Deviation 38.3 RDW Coeff of Gale 12.6 Plt Count 272 MPV 8.8 Immature Gran % (Auto) 0.500 Neut % (Auto) 79.3 H Lymph % (Auto) 9.4 L [place] % (Auto) 10.3 H Eos % (Auto) 0.2 Baso % (Auto) 0.3 Absolute Neuts (auto) 8.1 H Absolute Lymphs (auto) 0.96 Nucleated RBC % 0 PT 14.2 INR 1.1 APTT 28.8 Sodium 120 L Potassium 4.1 Chloride 87 L Carbon Dioxide 22.0 Anion Gap 11 BUN 5 L Creatinine 0.98 Estim Creat Clear Calc 93.98 Est GFR (MDRD) Af Amer 103 Est GFR (MDRD) Non-Af 85 BUN/Creatinine Ratio 5.1 L Glucose 102 Calcium 9.4 Troponin I High Sens 90 H POC Glucose 102 Radiography Diagnostic Testing: Clinical Impression(s) from Imaging Studies Brain CT 10/28/23 21:24 IMPRESSION: 1.4 cm thick acute on chronic left subdural hematoma with 6 mm znju-[id number]-pjffi midline shift. Large chronic appearing left frontal parietal scalp hematoma. Electronically Signed: Ezekiel Mayfield MD at 21:55 EDT , ADDENDUM: 10/28/232203 IMPRESSION: 1.4 cm thick acute on chronic left subdural hematoma with 6 mm erpj-bb-pyemf midline shift. Large chronic appearing left frontal parietal scalp hematoma. N.B. : The above Results were Read Back by Ezekiel Mayfield MD to Josh Blankenship DO, and understanding confirmed on 10/28/2023 21:57:21 (ET). Electronically Signed: Ezekiel Mayfield MD at 21:55 EDT , Head/Neck CTA 10/28/23 21:25 IMPRESSION: No intracranial aneurysm or large vessel occlusion. No internal carotid artery stenosis. Left subdural hematoma with recent and chronic components. Postoperative change. Electronically Signed: Parish Villegas MD at 22:09 EDT , ADDENDUM: 10/28/23 2218 IMPRESSION: No intracranial aneurysm or large vessel occlusion. No internal carotid artery stenosis. Left subdural hematoma with recent and chronic components. Postoperative change. N.B. : The above Results were Read Back by Parish Villegas MD to Josh Blankenship DO, and understanding confirmed on 10/28/2023 22:11:32 (ET). Electronically Signed: Parish Villegas MD at 22:09 EDT , Chest X-Ray 10/28/23 22:11 IMPRESSION: Normal x-ray examination of the chest. Electronically Signed: Parish Villegas MD at 23:05 EDT , CT scan of the brain was obtained. There is an acute on chronic left subdural hematoma. There is some kstc-gj-[id number] midline shift. This was interpreted by the radiologist was also independently reviewed by myself. CTA of the head and neck was obtained. There is no large vessel occlusion. There is no carotid or vertebral stenosis. This was interpreted by the radiologist and was also independently reviewed by myself. EKG Initial EKG: Attestation: I personally reviewed and interpreted this EKG as follows: Interpretation: Sinus Rhythm (71) and No Acute Injury Pattern Comments: EKG was obtained. On my independent interpretation, it shows a sinus rhythm with first-degree AV block with a rate of 71. SD interval was prolonged at 224 ms. QRS interval was normal at 100 ms. QTc interval was normal at 428 ms. There is borderline left axis deviation at -14. There are no acute ST or T wave changes noted. Prior EKG tracings: available for review Prior: Unchanged (03/03/2023) Management Discussion w/another healthcare provider: Hydroelectric Systems Technician and Radiologist Treatment and Re-Evaluation Narrative: Stroke alert was called. Prior to going to CT scan, patient started having another seizure. Patient was given Ativan for this. Case was discussed with Dr. De León, stroke neurologist [facility]. He recommended loading the patient with Keppra. This was ordered. He accepted the patient to be transferred to [facility]. Arrangements are being made to transfer the patient there. Patient is postictal on reevaluation. [facility] was contacted for transfer. They elected to intubate the patient prior to transfer. Patient was intubated by [facility] staff. Patient was then transferred by [facility] to [facility]. Stroke Documentation Questions Stroke Team Activated: Yes Reviewed Inclusion/Exclusion criteria: Yes Was Patient considered for Endovascular Intervention?: No-CTA negative, determined not to be an endovascular candidate IV Thrombolytic Administered: No Critical Care Time Critical Care Time: Yes Critical care time (excluding procedures): 30-74 minutes (36), Including time spent:, Discussing w/Patient &/or Family/On Site Wastewater Systems Technician, Discussing w/Consultants, Arranging Admission or Transfer and Performing Direct Patient Care at Bedside Discharge Plan Triage Chief Complaint: Seizure ED Provider: Josh Blankenship Dx/Rx/DC Orders Clinical Impression: Acute on chronic intracranial subdural hematoma, Hyponatremia, Seizure Prescriptions: No Action multivitamin [Daily Multi-Vitamin] Tablet 1 tab PO DAILY amitriptyline 150 mg tablet 150 mg PO QHS [facility] [Primary Care Provider] - Print Language: Trinidadian Disposition Disposition: Acute Care Hospital Discharge Location: [facility] Discharge Date/Time: 10/28/23 22:42
[2023-10-28] MEDS: levETIRAcetam IV 2,000 MG in 0.9% Normal Saline (250mL Bag) 230 ML 1000 MG IV (22:11)
--- NOTE | 2023-10-28 22:11 | RAD_ITS ---
STUDY: X-RAY CHEST REASON FOR EXAM: Male, 53 years old. Neuro deficit, acute, stroke suspected TECHNIQUE: Single AP portable view of the chest. COMPARISON: March 03, 2023. FINDINGS: The lungs are clear and expanded. There is no demonstrated pleural abnormality. Normal size heart. Normal mediastinum and domenica. Normal visualized pulmonary arteries. Normal visualized aortic arch and descending thoracic aorta. Normal visualized thoracic spine. Normal visualized ribs, clavicles, and shoulders. There is no demonstrated abnormality of the visualized soft tissue structures of the upper abdomen. RAD/Chest 1 View IMPRESSION: Normal x-ray examination of the chest. Electronically Signed: Parish Villegas MD at 23:05 EDT ,
[2023-10-28 22:14] VITALS: BP 122/71; PULSE 68; RESP 14; TEMP 36; O2SAT 98
[2023-10-28 22:18] VITALS: BP 122/71; PULSE 69; RESP 16; O2SAT 100
--- NOTE | 2023-10-28 22:41 | ED.RN ---
pt being intubated by [facility] before transfer
--- NOTE | 2023-10-29 00:14 | ED.RN ---
Attempted to call [facility] to update on pt's transfer to [facility], unable to reach staff.
== END 2023-10-28 22:42 | disposition short-term general hospital (02) ==
PROVIDERS: Emergency Provider Emergency Medicine; Visit Provider Emergency Medicine
DX: I62.01 Nontraumatic acute subdural hemorrhage (principal); R56.9 Unspecified convulsions; I62.03 Nontraumatic chronic subdural hemorrhage; E87.1 Hypo-osmolality and hyponatremia
CPT/HCPCS: 51702; 70450; 70496; 70498; 71045; 80048; 82962; 84484; 85025; 85610; 85730; 93005; 96365; 96375; 96376; 99285; J7050; Q9967; A4216

== ENCOUNTER 2023-11-29 21:20 | Emergency (ER) | payer OTHER, SELFPAY ==
[2023-11-29 21:22] VITALS: BP 133/76; PULSE 59; RESP 18; TEMP 35.9; O2SAT 100
[2023-11-29 21:46] VITALS: BMI 27.8
--- NOTE | 2023-11-29 22:33 | RAD_ITS ---
INDICATION: NG placement EXAMINATION/TECHNIQUE: X-RAY - XR Abdomen 1 View COMPARISON: FINDINGS: Tip of the feeding tube is at the second to third portion of the duodenum. The bowel gas pattern is normal. No bowel obstruction. Sensitivity for free air limited on supine view. Lung bases are clear. RAD/Abdomen Single View IMPRESSION: Feeding tube at the 2nd-3rd portion of the duodenum. Electronically Signed: Kavita Trejo MD at 23:24 EDT ,
--- NOTE | 2023-11-29 22:33 | RAD_ITS ---
INDICATION: foreign body sensation EXAMINATION/TECHNIQUE: X-RAY - XR Neck Soft Tissue COMPARISON: Chest x-ray 10/28/2023 FINDINGS: Nasogastric tube in place, distal end was not included. No radiopaque foreign body identified. Epiglottis is not enlarged. Prevertebral soft tissues are grossly unremarkable. The airway is maintained. RAD/Neck for Soft Tissue IMPRESSION: NG tube/feeding tube in place, partially included. No other radiopaque foreign body identified Electronically Signed: Kavita Trejo MD at 23:22 EDT ,
--- NOTE | 2023-11-29 22:42 | EX.ED.DYSGE1 ---
HPI History of Present Illness Chief Complaint: Other, Pain/Inj Informant: patient, EMS and SNF Narrative Narrative: 53-year-old male who reportedly has a nasogastric tube in place due to swallowing issues. It is reported that the patient has a history of subdural hematoma/stroke. He states that he does not know why he is here in the emergency department. He states that he refused feedings a couple days ago and that the shelter staff is now refusing to give him food. He was reported by shelter staff that he walked to a store today and brought food for himself to eat. [facility] states that he had a foreign body sensation in his throat concerned or migration of his nasogastric tube. Patient states that he feels fine and has no current complaints. Patient states he feels strong enough that he would like to go home. He states that he has a father and his son. 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 There is a report of the the patient is being evaluated for PEG tube placement. [facility] Medical History Dysphagia Aphasia Subarachnoid hemorrhage Traumatic brain injury Alcohol abuse Anxiety and depression Home Medications ?Medication ?Instructions ?Recorded ?Last Taken ?Type amitriptyline 150 mg tablet 150 mg PO QHS 02/13/23 02/11/23 History multivitamin (Daily Multi-Vitamin 1 tab PO DAILY 02/13/23 Unknown History tablet) Allergy/AdvReac Type Severity Reaction Status Date / Time Penicillins Allergy PT UNSURE Verified 11/29/23 21:22 OF REACTION Family History Mother Rheumatoid arthritis Father Hypertension Surgical History Hx of brain surgery History of carpal tunnel surgery Social History household members: none Smoking Status: Never smoker alcohol intake: current alcohol intake frequency: 3 or more drinks per day details: Drinks usually 6-8, 12 ounces beers daily, 09/06/22 15 beers intake. substance use type: does not use ROS ROS ED Constitutional Constitutional ED: Denies chills or weight loss Eyes Eyes: Denies change in vision or diplopia ENT ENT ED: Denies ear pain, rhinorrhea or sore throat Cardiovascular Cardiovascular: Denies chest pain, orthopnea, palpitations or racing heartbeat Respiratory/Chest Respiratory/Chest: Denies cough, dyspnea or orthopnea Gastrointestinal Gastrointestinal: Denies abdominal pain, diarrhea, nausea or vomiting Genitourinary Genitourinary ED: Denies dysuria, hematuria or urinary frequency Musculoskeletal Musculoskeletal: Denies arthralgias or myalgias Integumentary Denies abscess or rash Neurologic Neurologic: Denies headache(s) or weakness Psychiatric Psychiatric: Denies anxiety, depression, suicidal ideation or suicidal thoughts Endocrine Endocrinology: Denies polydipsia, polyphagia or polyuria Allergic/Immunologic Allergic/Immunologic ED: Denies mouth swelling, tongue swelling or urticaria EXAM Physical Exam Narrative Exam Narrative: Patient is speaking and I can understand him. I find him alert oriented x 3. Const Vital Signs: 11/29/23 21:22 11/29/23 21:47 Temperature 96.6 F L Temperature Source Temporal Pulse Rate 59 L Respiratory Rate 18 Respiratory Effort Normal Respiratory Pattern Normal Blood Pressure 133/76 H Blood Pressure Mean 95 Pulse Ox 100 Oxygen Delivery Method Room Air Positive well nourished and well developed General Appearance ED: well developed HEENT Reports normocephalic, head/scalp atraumatic and moist mucous membranes HEENT Narrative: There is a tube in the right naris consistent with a feeding tube. This appears secured with a zip tie like device. Eyes PERRL and EOMs intact bilaterally Neck no lymphadenopathy, supple and no JVD Resp normal respiratory effort and clear to auscultation bilaterally Cardio regular rate, regular rhythm and no murmurs GI normal to inspection, nondistended, normoactive bowel sounds and non-tender Palpation: soft Back/Spine no CVA tenderness and normal ROM Extremity normal to inspection General Extremety ED: Negative for edema General Extremity: Negative for edema Neuro oriented x3 and CN's II-XII intact bilaterally Neuro Narrative: Patient rated weakness of right arm approximately Sensorium / Orientation: alert Psych mental status grossly normal Mood & Affect: Negative for depressed or tearful Skin no rashes or lesions noted and no wounds MDM MDM MDM Narrative Medical decision making narrative: Concern for possible abnormal placement of nasogastric tube. My independent interpretation plain films of the neck is nasogastric tube present. No significant soft tissue swelling. My independent interpretation of the abdominal x-ray shows that the feeding tube is probably a Dobbhoff and in the duodenum. I do not appreciate full air. This point I am not seeing a medical emergency. Believe that the patient can be discharged back to shelter. History & Record Review Discussion w/independent historian: EMS personnel, Patient and Other (SNF) Radiography Diagnostic Testing: Clinical Impression(s) from Imaging Studies KUB X-Ray 11/29/23 22:33 IMPRESSION: Feeding tube at the 2nd-3rd portion of the duodenum. Electronically Signed: Kavita Trejo MD at 23:24 EDT , Soft Tissue Neck X-Ray 11/29/23 22:33 IMPRESSION: NG tube/feeding tube in place, partially included. No other radiopaque foreign body identified Electronically Signed: Kavita Trejo MD at 23:22 EDT , Discharge Plan Triage Chief Complaint: Other, Pain/Inj ED Provider: Kyrie Schwartz Dx/Rx/DC Orders Clinical Impression: Complication of feeding tube, Foreign body sensation, throat Prescriptions: No Action multivitamin [Daily Multi-Vitamin] Tablet 1 tab PO DAILY amitriptyline 150 mg tablet 150 mg PO QHS [facility] [Primary Care Provider] - Activity Restrictions/Additional Instructions: Your feeding tube appears to be in adequate position. Print Language: Pakistani Disposition Disposition: Custodial Facility Discharge Location: [facility]
[2023-11-29 23:46] VITALS: BP 130/70; PULSE 60; RESP 16; TEMP 36.7; O2SAT 98
== END 2023-11-30 00:01 | disposition skilled nursing facility (03) ==
PROVIDERS: Emergency Provider Emergency Medicine; Visit Provider Emergency Medicine
DX: Z43.4 Encounter for attention to other artificial openings of digestive tract (principal); R09.A2 Foreign body sensation, throat
CPT/HCPCS: 70360; 74018; 99282

== ENCOUNTER 2023-11-30 13:01 | Emergency (ER) | payer OTHER, MEDICAID, SELFPAY ==
[2023-11-30 13:03] VITALS: BP 114/71; PULSE 69; RESP 17; TEMP 36.6; O2SAT 97; BMI 28.3
--- NOTE | 2023-11-30 13:37 | CT_ITS ---
STUDY: CT BRAIN WITHOUT CONTRAST REASON FOR EXAM: Male, 53 years old. Weakness RADIATION DOSAGE (If Supplied By Facility): CTDIvol = ( 44.99 ) mGy, DLP = ( 812.98 ) mGycm TECHNIQUE: Transaxial CT imaging of the brain was performed without administration of intravenous contrast material. Individualized dose optimization techniques were used for this CT. COMPARISON: Comparison is made with prior study dated October 28, 2023. FINDINGS: Residual soft tissue prominence overlying the left temporal parietal lobes. The patient is status post resection of the left frontal temporal parietal bones. There is mild cerebral atrophy with widening of the extra-axial spaces and ventricular dilatation. There is evidence of a small acute subdural hematoma overlying the left frontal parietal lobes. The maximum thickness is 7 mm. Normal basal ganglia and thalami. Normal brainstem. Normal cerebellum. Stable arachnoid cyst in the left posterior medial fossa. There is no intracranial hemorrhage. There are no findings of an acute ischemic infarction. Normal visualized paranasal sinuses. CT/Brain/Head without Contrast IMPRESSION: Persistent small acute subdural hematoma overlying the left frontoparietal lobes. Maximum thickness is 7 mm. Status post resection of the left frontal parietal bone with residual scalp swelling. Electronically Signed: Mahad Felder MD at 14:15 EDT ,
--- NOTE | 2023-11-30 13:38 | EKG12_ITS ---
Test Reason : WEAKNESS Blood Pressure : / mmHG Vent. Rate : 068 BPM Atrial Rate : 068 BPM P-R Int : 190 ms QRS Dur : 096 ms QT Int : 390 ms P-R-T Axes : 031 -25 047 degrees QTc Int : 414 ms Normal sinus rhythm Normal ECG Confirmed by TAVON CORDOVA, SHRUTI ([id number]), editor school photograph TAMERA HANDY ([id number]) on 12/02/2023 9:57:59 AM Referred By: Confirmed By:JORGE A MONTES DE OCA MD
[2023-11-30 14:01] VITALS: BP 125/66
[2023-11-30 14:18] LABS: Anion Gap 10 (5-15); BUN 4 mg/dL (7-18); BUN/Creat Ratio 4.8 RATIO (10-20); Calcium,Total 8.9 mg/dL (8.5-10.1); Chloride 93 mmol/L (98-107); Creatinine, Serum 0.84 mg/dL (0.70-1.30); EST Glomerular Filtration Rate 101 mL/min (>60); Est Glom Filt Rate - Afr Amer 123 mL/min (>60); Estimated Creatinine Clearance 104.18 ml/min; Glucose 104 mg/dL (74-106); Potassium 3.4 mmol/L (3.5-5.1); Sodium Level 124 mmol/L (136-145); Troponin-I HS 6 pg/mL (3.0-78.0)
--- NOTE | 2023-11-30 14:39 | ED.RN ---
patient dressed and out of bed. pt asking if he can leave. rn informed patient he needs to get back in bed for the time being.
[2023-11-30 14:53] LABS: Absolute Neutrophil Count 4.3 X10^3/uL (2.0-7.7); Basophil# 0.02 X10^3/uL; Basophil% 0.3 % (0-1); Eosinophil# 0.53 X10^3/uL; Hematocrit 36.5 % (40-54); Hemoglobin 12.8 g/dL (13.0-16.5); Lymphocyte % 13.6 % (19-41); Mean Corp Hgb Conc 35.1 g/dL (32-36); Mean Corpuscular Hgb 29.6 pg (27.0-32.0); Mean Corpuscular Volume 84.5 fL (80-94); Mean Platelet Vol. 9.6 fl (6.2-12.0); Monocyte% 13.6 % (0-10); NRBC Flagged by Analyzer 0 % (0-5); Neutrophil # 4.26 X10^3/uL (2.7-7.7); Neutrophil % 64.3 % (47-70); Platelet Count 167 K/mm3 (150-450); RBC Distribution Width CV 13.3 % (11.6-14.6); RBC Distribution Width SD 40.9 fl (35.1-43.9); Red Blood Count 4.32 M/mm3 (4.6-6.2); White Blood Count 6.6 K/mm3 (4.4-11.0)
[2023-11-30 15:18] LABS: Mucous, Urine 0 SEEN /hpf (<or=2+); Squamous Epithelial Cells - UA 0 SEEN /hpf (0-5)
[2023-11-30 15:22] LABS: Color, Urine Yellow (Yellow); Glucose, Dipstick Normal (Normal); Ketone-Dipstick Negative (Negative); Leukocyte Esterase-Dipstick 500 /ul (Negative); Nitrite-Dipstick Positive (Negative); Occult Blood-Urine 50 /ul (Negative); Protein-Dipstick 15 mg/dl (Negative); Urine Bilirubin Dipstick Negative (Negative); Urine Clarity Sl. Cloudy (Clear); Urine Urobilinogen 1 mg/dl (Normal)
[2023-11-30 15:32] LABS: White Blood Cells >100 SEEN /hpf (0-5)
[2023-11-30 15:33] LABS: Bacteria 3+ /hpf (None Seen); Red Blood Cells-Urine 0-5 SEEN /hpf (0-5)
[2023-11-30 16:00] VITALS: BP 121/68; PULSE 64; RESP 14; O2SAT 98
--- NOTE | 2023-11-30 16:29 | EDS_ITS ---
HPI History of Present Illness Chief Complaint: Weakness Informant: patient and SNF Onset/Context/Timing Onset: Today Timing: Continuous Quality: Confused Location: Generalized Worsened by: Nothing Relieved by: Nothing Narrative Narrative: Patient presents with altered mental status that was noticed today at his extended care facility. Staff there states the patient was nonverbal today. Patient has a history of traumatic brain injury and was recently diagnosed with an acute on chronic subdural hematoma. Patient was transferred to [facility] at that time. Patient was discharged back to the [facility]. Patient was seen here last evening for problems with his feeding tube. Currently patient denies any problems with his feeding tube. Currently, patient is awake, alert, and oriented to person and place. [facility] Medical History Dysphagia Aphasia Subarachnoid hemorrhage Traumatic brain injury Alcohol abuse Anxiety and depression Medical History no medical history Home Medications ?Medication ?Instructions ?Recorded ?Last Taken ?Type amitriptyline 150 mg tablet 150 mg feeding tube QHS 02/13/23 02/11/23 History multivitamin (Daily Multi-Vitamin 1 tab PO DAILY 02/13/23 Unknown History tablet) acetaminophen 500 mg tablet 1,000 mg feeding tube Q8H PRN PRN 11/30/23 Unknown History (Acetaminophen Extra Strength) fever or pain bisacodyl 10 mg rectal suppository 10 mg MD DAILY PRN constipation 11/30/23 Unknown History (Laxative (bisacodyl)) famotidine 20 mg tablet 20 mg feeding tube BID 11/30/23 Unknown History levetiracetam 1,000 mg tablet 1,000 mg PO BID 11/30/23 Unknown History (Keppra) magnesium hydroxide 400 mg/5 mL 30 ml PO DAILY PRN constipation 11/30/23 Unknown History oral suspension melatonin 3 mg capsule 6 mg PO QHS 11/30/23 Unknown History nitrofurantoin 100 mg PO Q12 #14 CAPSULES 11/30/23 Unknown Rx monohydrate/macrocrystals 100 mg capsule olanzapine 2.5 mg tablet PO 11/30/23 Unknown History quetiapine 25 mg tablet (Seroquel) 25 mg PO DAILY 11/30/23 Unknown History sennosides 8.6 mg tablet (Senna 8.6 mg PO DAILY 11/30/23 Unknown History Laxative) terbinafine HCl 250 mg tablet 250 mg PO DAILY 11/30/23 Unknown History thiamine HCl (vitamin B1) 100 mg 100 mg PO DAILY 11/30/23 Unknown History tablet valproic acid (as sodium salt) 250 750 mg PO BID 11/30/23 Unknown History mg/5 mL (5 mL) oral solution Allergy/AdvReac Type Severity Reaction Status Date / Time lacosamide (From Vimpat) Allergy Unknown PT UNSURE Verified 11/30/23 13:02 OF REACTION Penicillins Allergy PT UNSURE Verified 11/29/23 21:22 OF REACTION Family History Mother Rheumatoid arthritis Father Hypertension Surgical History Hx of brain surgery History of carpal tunnel surgery Social History household members: none Smoking Status: Never smoker alcohol intake: current alcohol intake frequency: 3 or more drinks per day details: Drinks usually 6-8, 12 ounces beers daily, 09/06/22 15 beers intake. substance use type: does not use ROS ROS ED Review of Systems ROS Unobtainable: due to mental status EXAM Physical Exam Const Vital Signs: 11/30/23 13:03 11/30/23 13:28 11/30/23 14:01 Temperature 97.9 F Temperature Source Temporal Pulse Rate 69 Respiratory Rate 17 Respiratory Pattern Normal Blood Pressure 114/71 125/66 H Blood Pressure Mean 85 85 Pulse Ox 97 Oxygen Delivery Method Room Air 11/30/23 16:00 Temperature Temperature Source Pulse Rate 64 Respiratory Rate 14 Respiratory Pattern Blood Pressure 121/68 H Blood Pressure Mean 85 Pulse Ox 98 Oxygen Delivery Method Room Air Positive well nourished and well developed General Appearance ED: well developed and NAD HEENT Reports moist mucous membranes Neck supple and no JVD Resp normal respiratory effort and clear to auscultation bilaterally Cardio regular rate and regular rhythm GI non-tender and non-distended Palpation: soft Extremity normal to inspection Neuro CN's II-XII intact bilaterally and no sensory deficits noted Sensorium / Orientation: alert and orientation impaired Motor Exam: strength 5/5 throughout MDM MDM MDM Narrative Medical decision making narrative: Differential diagnosis includes stroke, intracranial bleeding, anemia, urinary tract infection, electrolyte abnormality, pneumonia, cardiac dysrhythmia, cardiac ischemia, viral illness, and dehydration. CBC will be obtained to assess for leukocytosis and anemia. Basic metabolic profile will be obtained to assess for electrolyte abnormality and renal function. Urinalysis will be obtained to assess for urinary tract infection and hematuria. High-sensitivity troponin will be obtained to assess for cardiac ischemia. COVID-19, influenza, and RSV PCR will be obtained to assess for viral illness. CT scan of the brain will be obtained to assess for intracranial bleeding. EKG will be obtained to assess for cardiac dysrhythmia and cardiac ischemia. Lab Data Attestation: I reviewed the patient's lab results. Lab results narrative: CBC was reviewed. There is a mild anemia with a hemoglobin of 12.8 and hematocrit 36.5. The remainder is within normal limits. Basic metabolic profile was reviewed. Sodium was slightly low at 124 and chloride was 93. Remainder is within normal limits. High-sensitivity troponin was reviewed and was normal at 6. Urinalysis was reviewed. There are positive nitrates. Leukocyte esterase was 500. There are greater than 100 white blood cells and 3+ bacteria. COVID-19 PCR was reviewed and was negative. Influenza PCR was reviewed and was negative for influenza A and influenza B. RSV PCR was reviewed and was negative. Labs: Laboratory Results - last 24 hr 11/30/23 11/30/23 11/30/23 13:40 13:40 14:38 WBC Cancelled 6.6 Corrected WBC Cancelled RBC Cancelled 4.32 L Hgb Cancelled 12.8 L Hct Cancelled 36.5 L MCV Cancelled 84.5 MCH Cancelled 29.6 MCHC Cancelled 35.1 RDW Std Deviation Cancelled 40.9 RDW Coeff of Gale Cancelled 13.3 Plt Count Cancelled 167 MPV Cancelled 9.6 Immature Gran % (Auto) Cancelled 0.200 Neut % (Auto) Cancelled 64.3 Lymph % (Auto) Cancelled 13.6 L [place] % (Auto) Cancelled 13.6 H Eos % (Auto) Cancelled 8.0 H Baso % (Auto) Cancelled 0.3 Absolute Neuts (auto) Cancelled 4.3 Absolute Lymphs (auto) Cancelled 0.90 Total Counted Cancelled Neutrophils % (Manual) Cancelled Band Neutrophils % Cancelled Lymphocytes % (Manual) Cancelled Monocytes % (Manual) Cancelled Eosinophils % (Manual) Cancelled Basophils % (Manual) Cancelled Metamyelocytes % Cancelled Myelocytes % Cancelled Promyelocytes % Cancelled Blast Cells % Cancelled Plasma Cell % (Manual) Cancelled Other Cells % Cancelled Nucleated RBC % Cancelled 0 Nucleated RBCs/100 WBC Cancelled Differential Comment Cancelled Diff Path Review Cancelled Hypersegmented Neuts Cancelled Atypical Lymphocytes Cancelled Reactive Lymphocytes Cancelled Smudge Cells Cancelled Toxic Granulation Cancelled Toxic Vacuolation Cancelled Dohle Bodies Cancelled [place] Rods Cancelled Platelet Estimate Cancelled Plt Morphology Comment Cancelled RBC Morphology Cancelled Cancelled Polychromasia Cancelled Hypochromasia Cancelled Basophilic Stippling Cancelled Anisocytosis Cancelled Microcytosis Cancelled Macrocytosis Cancelled Spherocytes Cancelled Sickle Cells Cancelled Target Cells Cancelled Tear Drop Cells Cancelled Ovalocytes Cancelled Stomatocytes Cancelled [place] Bodies Cancelled Romina Cells Cancelled Bite Cells Cancelled Crenated Cell Cancelled Acanthocytes (Spur) Cancelled Rouleaux Cancelled Schistocytes Cancelled Sodium 124 L Potassium 3.4 L Chloride 93 L Carbon Dioxide 21.0 Anion Gap 10 BUN 4 L Creatinine 0.84 Estim Creat Clear Calc 104.18 Est GFR (MDRD) Af Amer 123 Est GFR (MDRD) Non-Af 101 BUN/Creatinine Ratio 4.8 L Glucose 104 Calcium 8.9 Troponin I High Sens 6 Urine Color Urine Clarity Urine pH Ur Specific [place] Urine Protein Urine Glucose (UA) Urine Ketones Urine Occult Blood Urine Nitrite Urine Bilirubin Urine Urobilinogen Ur Leukocyte Esterase Urine RBC Urine WBC Ur Squamous Epith Cells Urine Bacteria Urine Mucus 11/30/23 15:05 WBC Corrected WBC RBC Hgb Hct MCV MCH MCHC RDW Std Deviation RDW Coeff of Gale Plt Count MPV Immature Gran % (Auto) Neut % (Auto) Lymph % (Auto) [place] % (Auto) Eos % (Auto) Baso % (Auto) Absolute Neuts (auto) Absolute Lymphs (auto) Total Counted Neutrophils % (Manual) Band Neutrophils % Lymphocytes % (Manual) Monocytes % (Manual) Eosinophils % (Manual) Basophils % (Manual) Metamyelocytes % Myelocytes % Promyelocytes % Blast Cells % Plasma Cell % (Manual) Other Cells % Nucleated RBC % Nucleated RBCs/100 WBC Differential Comment Diff Path Review Hypersegmented Neuts Atypical Lymphocytes Reactive Lymphocytes Smudge Cells Toxic Granulation Toxic Vacuolation Dohle Bodies [place] Rods Platelet Estimate Plt Morphology Comment RBC Morphology Polychromasia Hypochromasia Basophilic Stippling Anisocytosis Microcytosis Macrocytosis Spherocytes Sickle Cells Target Cells Tear Drop Cells Ovalocytes Stomatocytes [place] Bodies [place] Cells Bite Cells Crenated Cell Acanthocytes (Spur) Rouleaux Schistocytes Sodium Potassium Chloride Carbon Dioxide Anion Gap BUN Creatinine Estim Creat Clear Calc Est GFR (MDRD) Af Amer Est GFR (MDRD) Non-Af BUN/Creatinine Ratio Glucose Calcium Troponin I High Sens Urine Color Yellow Urine Clarity Sl. Cloudy Urine pH 7.0 Ur Specific [place] 1.010 Urine Protein 15 H Urine Glucose (UA) Normal Urine Ketones Negative Urine Occult Blood 50 H Urine Nitrite Positive H Urine Bilirubin Negative Urine Urobilinogen 1 H Ur Leukocyte Esterase 500 H Urine RBC 0-5 SEEN Urine WBC >100 SEEN Ur Squamous Epith Cells 0 SEEN Urine Bacteria 3+ Urine Mucus 0 SEEN Radiography Diagnostic Testing: Clinical Impression(s) from Imaging Studies Brain CT 11/30/23 13:37 IMPRESSION: Persistent small acute subdural hematoma overlying the left frontoparietal lobes. Maximum thickness is 7 mm. Status post resection of the left frontal parietal bone with residual scalp swelling. Electronically Signed: Mahad Felder MD at 14:15 EDT , CT scan of the brain was obtained. There is a persistent small subdural hematoma overlying the left frontal parietal lobes. Maximum thickness is 7 mm. There is no left shift. This was improved compared to previous CT scan. This was interpreted radiologist was also independently reviewed by myself. EKG Initial EKG: Attestation: I personally reviewed and interpreted this EKG as follows: Interpretation: Sinus Rhythm (68) and No Acute Injury Pattern Comments: EKG was obtained. On my independent interpretation, it showed a normal sinus rhythm with a rate of 68. MD interval, QRS interval, and QTc intervals were all normal. [place] was normal. There are no acute ST or T wave changes. Prior EKG tracings: available for review Prior: Unchanged (10/28/2023) Treatment and Re-Evaluation :: Patient was given a dose of Rocephin here. Urine culture was ordered. Patient was given a prescription for Macrobid. Patient will be discharged back to the extended care facility. Patient appeared to understand and was agreeable with the plan. All questions were answered. Discharge Plan Triage Chief Complaint: Weakness ED Provider: Josh Blankenship Dx/Rx/DC Orders Clinical Impression: Urinary tract infection, Episode of confusion Instructions: ED Bladder Infection, Male (Adult) Prescriptions: New nitrofurantoin monohyd/m-cryst 100 mg capsule 100 mg PO Q12 Qty: 14 0RF No Action multivitamin [Daily Multi-Vitamin] Tablet 1 tab PO DAILY amitriptyline 150 mg tablet 150 mg feeding tube QHS acetaminophen [Acetaminophen Extra Strength] 500 mg tablet 1,000 mg feeding tube Q8H PRN PRN (Reason: fever or pain) bisacodyl [Laxative (bisacodyl)] 10 mg suppository 10 mg MD DAILY PRN (Reason: constipation) famotidine 20 mg tablet 20 mg feeding tube BID levetiracetam [Keppra] 1,000 mg tablet 1,000 mg PO BID Rx Instructions: feeding tube melatonin 3 mg capsule 6 mg PO QHS Rx Instructions: feeding tube magnesium hydroxide 400 mg/5 mL suspension 30 ml PO DAILY PRN (Reason: constipation) olanzapine 2.5 mg tablet PO sennosides [Senna Laxative] 8.6 mg tablet 8.6 mg PO DAILY quetiapine [Seroquel] 25 mg tablet 25 mg PO DAILY terbinafine HCl 250 mg tablet 250 mg PO DAILY thiamine HCl (vitamin B1) 100 mg tablet 100 mg PO DAILY valproic acid (as sodium salt) 250 mg/5 mL (5 mL) solution 750 mg PO BID [facility] [facility] [Primary Care Provider] - 5-7 Days Print Language: Bengali Disposition Disposition: [facility] Facility Discharge Location: [facility] [place]
[2023-11-30] MEDS: Ceftriaxone 1 GM/50 ML BAG IV (17:10)
[2023-11-30 18:55] VITALS: RESP 18
== END 2023-11-30 19:49 | disposition skilled nursing facility (03) ==
PROVIDERS: Emergency Provider Emergency Medicine; Visit Provider Emergency Medicine
DX: N39.0 Urinary tract infection, site not specified (principal); R41.0 Disorientation, unspecified; Z79.899 Other long term (current) drug therapy
CPT/HCPCS: 36415; 70450; 80048; 81001; 84484; 85025; 87631; 93005; 96365; 99283; J7050; A4216